=== PATIENT | female | born 1965 | race Caucasian/White ===

== ENCOUNTER 2017-03-10 08:43 | Inpatient (IN) | payer OTHER ==
[~2017-03-10] VITALS: Ht 167.6 cm; Wt 81.6 kg
[~2017-03-10 08:43] MED LIST: ASPIRIN CHILDRE81 MG; BENADRYL 50 MG50 MG; BENZTROPINE1 MG PO; LEVOTHYROXINE0.1 M1 PO; SEROQUEL 100MG100 MG PO
--- NOTE | 2017-03-10 09:51 | ED GENERAL ADULT ---
History of Present Illness General Chief Complaint: Fall Stated Complaint: BIBA, S/P FALL Source: patient, family Exam Limitations: poor historian Vital Signs & Intake/Output Vital Signs & Intake/Output Vital Signs Date Time Temp Pulse Resp B/P B/P Pulse O2 O2 Flow FiO2 Mean Ox Delivery Rate 03/10 1447 99.2 80 24 162/81 03/10 1311 97.0 78 18 143/79 96 Room Air 03/10 1208 97.0 80 20 154/80 98 Room Air 03/10 1050 98.0 80 20 147/79 98 Room Air 03/10 0925 97.8 78 18 136/74 96 Room Air 03/10 0913 99 Room Air 03/10 0846 97.2 82 20 127/73 98 Room Air Allergies Coded Allergies: NO KNOWN ALLERGIES (05/24/16) Reconcile Medications Aspirin (Children's Aspirin) (Unknown Strength) TAB.CHEW (Unknown Dose) UNKNOWN (Reported) Benztropine Mesylate (Benztropine) 1 MG TAB 1 TAB PO BEDTIME PSYCH HEALTH ( Reported) Diphenhydramine HCl (Benadryl) (Unknown Strength) CAP (Unknown Dose) SLEEP ( Reported) Levothyroxine Sodium 0.1 MG TAB 1 TAB PO DAILY HYPOTHYROID (Reported) Quetiapine Fumarate (Seroquel) 100 MG TAB 3 TAB PO QPM BIPOLAR (Reported) Quetiapine Fumarate (Seroquel) 200 MG TABLET 3 TAB PO QPM Psychosis Triage Note: PT BIBIsabel FROM HOME AFTER TRIPPING AND FALLING INJURING LEFT HIP AND LEG. PT DENIES LOC, DENIES HEADSTRIKE. Triage Nurses Notes Reviewed? yes Onset: Abrupt Duration: hour(s): Timing: single episode today Injury Environment: home Severity: moderate Modifying Factors: Improves With: rest. HPI: 51yo female BIBIsabel to ED c/o fall. Patient states that this morning while she was doing laundry she stood up and felt tired and fell down. She is not sure of how she fell however she thinks she landed on her left side. She denies hitting her head during fall. She c/o pain in her left hip and left leg. She was not able to walk after she fell. She denies LOC, black out, or syncope. Prior to her fall she did not feel dizziness, lightheadedness, chest pain, palpitations, short of breath. She states that she no longer drinks alcohol however her states she may have been drinking recently and she often lies about her drinking, he states she drinks "when ever she can get her hands on it". The patient smokes 1- 2 packs per day and denies ilicit drug use. The states that the patient does not sleep well at night and is often tired during the day. The patient states this morning she woke up around 4AM and felt awake. She denies abdominal pain, visual changes, head or neck pain, headache, urinary symptoms, changes in bowel movements. (JAIDA PEREZ PA-C) Past History Travel History Traveled to [place] past 21 day No Medical History Any Pertinent Medical History? see below for history Neurological: NONE EENT: NONE Cardiovascular: NONE Respiratory: NONE Gastrointestinal: NONE Hepatic: NONE Renal: NONE Musculoskeletal: NONE Psychiatric: NONE Endocrine: THYROID Surgical History Surgical History: none Psychosocial History Who do you live with Family What is your primary language Uzbek Tobacco Use: Current Daily Use Daily Tobacco Use Amount/Type: => 5 Cigarettes daily ETOH Use: occasional use Illicit Drug Use: denies illicit drug use Family History Hx Contributory? No (JAIDA PEREZ PA-C) Medical History Endocrine: hypothyroidism (JOSE MIGUEL HOGUE,MARTHA) Review of Systems Review of Systems Constitutional: Reports: no symptoms. EENTM: Reports: no symptoms. Respiratory: Reports: no symptoms. Cardiovascular: Reports: no symptoms. GI: Reports: no symptoms. Genitourinary: Reports: no symptoms. Musculoskeletal: Reports: see HPI. Skin: Reports: no symptoms. Neurological/Psychological: Reports: no symptoms. Hematologic/Endocrine: Reports: no symptoms. Immunologic/Allergic: Reports: no symptoms. All Other Systems: Reviewed and Negative (JAIDA PEREZ PA-C) Physical Exam Physical Exam General Appearance: well developed/nourished, no apparent distress, alert, awake Head: atraumatic, normal appearance, no tenderness Eyes: Bilateral: normal appearance, PERRL, EOMI. Ears, Nose, Throat: normal pharynx, hearing grossly normal, moist mucus membranes, no bleeding from gums, no erythema Neck: normal inspection, supple, full range of motion, no midline tenderness Respiratory: chest non-tender, no respiratory distress, lungs clear Cardiovascular: regular rate/rhythm Gastrointestinal: normal bowel sounds, soft, non-tender, no organomegaly Back: normal inspection, tenderness over lumbar spine and lumbar paraspinal muscles Extremities: pedal edema (1+ bilaterally), tenderness at left pelvis and hip, left femur, and left knee, decreased ROM with hip flexion due to pain Neurologic/Psych: awake, alert, oriented x 3, supervisor receiving and processing II-XII nml as tested, sensation intact Skin: intact, warm/dry, no ecchymosis, no abrasions, no lacerations, dark red/ purple pigmentation of bilateral ankles and lower legs Core Measures ACS in differential dx? Yes CVA/TIA Diagnosis: No Severe Sepsis Present: No Septic Shock Present: No (CHRIS RENE,JAIDA) Progress Differential Diagnoses I considered the following diagnoses in my evaluation of the patient: [CVA/TIA, ACS, etoh intoxication, drug overdose, dehydration, fracture, ICH, vertebral injury, spinal cord injury] Plan of Care: Orders Procedure Date/time Status CBC WITHOUT DIFFERENTIAL 03/11 0600 Active BASIC ELECTROLYTES PLUS BUN&CR 03/11 0600 Active Nothing by Mouth 03/10 D Active Pathway - chart 03/10 1413 Active Pathway - chart 03/10 1411 Active House Staff 03/10 1411 Active Code Status 03/10 1411 Active ED Holding Orders 03/10 1336 Active Admit to inpatient 03/10 1336 Active Vital Signs 03/10 1336 Active Code Status 03/10 1336 Complete Patient Data 03/10 1306 Active Add-on Test (ER Only) 03/10 1142 Active Add-on Test (ER Only) 03/10 1135 Active Rodgers, Insertion/Removal/Asses 03/10 1135 Complete CULTURE,URINE 03/10 1013 Active Add-on Test (ER Only) 03/10 0959 Active PARTIAL THROMBOPLASTIN TIME 03/10 0940 Complete PROTHROMBIN TIME 03/10 0940 Complete MAGNESIUM 03/10 0940 Complete CREATINE PHOSPHOKINASE 03/10 0940 Complete TYPE & SCREEN (NOT X-MATCH) 03/10 0940 Complete URINE DRUG SCREEN FOR ER ONLY 03/10 0935 Complete TROPONIN LEVEL 03/10 0935 Complete ETHANOL 03/10 0935 Complete COMPREHENSIVE METABOLIC PANEL 03/10 0935 Complete CBC WITHOUT DIFFERENTIAL 03/10 0935 Complete EKG 03/10 0935 Active Intake & Output 03/10 0913 Active VTE Mechanical Prophylaxis 03/10 UNK Active Current Medications Sig/Harsha Start time Last Medication Dose Stop Time Status Admin Levothyroxine Sodium 0.1 MG DAILY AC 03/11 0700 AC (Synthroid) Acetaminophen 1,000 MG Q6P PRN 03/10 1430 AC (Ofirmev) Ketorolac 15 MG Q6P PRN 03/10 1415 AC Tromethamine (Toradol) Lidocaine 1 PAT Q24H 03/10 1415 AC (Lidoderm) Morphine Sulfate 2 MG Q4P PRN 03/10 1415 AC (Morphine) Sodium Chloride 1,000 ML .Q10H 03/10 1415 AC 03/10 (Normal Saline 0.9%) 1438 Laboratory Tests 03/10/17 1013: Urine Opiates Screen < 100.00, Methadone Screen 69, Barbiturate Screen < 60, Ur Phencyclidine Scrn < 6.00, Amphetamines Screen < 100, U Benzodiazepines Scrn 95, Urine Cocaine Screen < 50, Urine Cannabis Screen 76.40 H 03/10/17 0940: Anion Gap 8, Estimated GFR > 60, BUN/Creatinine Ratio 17.1, Glucose 95, Calcium 9.4, Magnesium 2.0, Total Bilirubin 0.4, AST 26, ALT 35, Alkaline Phosphatase 101, Creatine Kinase 60, Troponin I < 0.01, Total Protein 6.5, Albumin 4.1, Globulin 2.4, Albumin/Globulin Ratio 1.7, PT 10.6, INR 1.01, APTT 29, CBC w Diff NO MAN DIFF REQ, RBC 4.22, MCV 96.5, MCH 31.9 H, RDW 14.3, MPV 7.1 L, Gran % 84.7 H, Lymphocytes % 10.4 L, Monocytes % 4.5, Eosinophils % 0.2, Basophils % 0.2, Absolute Granulocytes 6.8 H, Absolute Lymphocytes 0.8 L, Absolute Monocytes 0.4, Absolute Eosinophils 0, Absolute Basophils 0, PUBS MCHC 33.0, Serum Alcohol < 10.0 Microbiology 03/10 1135 URINE ROUT: Urine Culture - CAN Cancelled: Cancelled via OE: ADD ON 03/10 1013 URINE ROUT: Urine Culture - RECD EKG shows mild QT prolongation, magnesium level added on and pending Patient is talking in slow sentences, states that this is her normal however possible intoxication currently or last night. Patient was discussed with Dr. Sorto. On repeat exam patient and state that she was doing laundry last night around 11Pm and found her sitting on the ground downstairs after her fall this morning. Head CT order to assess for occult bleeding. Upon furhter questioning patient admits to buying methadone "on the streets". Xray results show Impacted left femoral neck fracture. Discussed patient with Orthopedist Dr. Martinez who states she may be able to go to surgery today pending medical clearance from Dr. Alanis. Patient was discussed with Dr. Alanis. Will keep NPO pending surgery. 13:[address] shows no acute intracranial pathology. CT of cervical spine shows no acute fracture, C-spine WNL. CXR shows no acute cardiopulmonary pathology. 13:33 Patient seen at bedside, she is sleeping comfortably in bed, no acute distress. 14:30 Patient cleared medically for surgery, will go to OR today. (CHRIS RENE,JAIDA) Diagnostic Imaging: Viewed by Me: Radiology Read, CT Scan. Discussed w/RAD: Radiology Read, CT Scan. Radiology Impression: PATIENT: UZMA MONTEJO PRESENT AGE: 51 PATIENT ACCOUNT NO: [id number] : 64 LOCATION: [facility] ORDERING PHYSICIAN: JAIDA PEREZ PA-C SERVICE DATE: 03/10/17 EXAM TYPE: RAD - XRY-FEMUR, LEFT 2 VIEWS; XRY-HIP 2-3 VIEWS, LEFT EXAMINATION: XR FEMUR and hip, LEFT CLINICAL INFORMATION: Pain post fall COMPARISON: None TECHNIQUE: AP view of the pelvis. AP and shoot through lateral view of the left hip. AP and lateral view of the left femur. FINDINGS: There is an impacted left femoral neck fracture. No other fracture is seen. The left hip joint and knee joint are unremarkable. Soft tissues are unremarkable. Bones of the pelvis are unremarkable. There is stool seen throughout the colon and dilatation of the bowel suggestive of constipation. IMPRESSION: Impacted left femoral neck fracture. DICTATED BY: ORIN MARSHALL MD DATE/TIME DICTATED:03/10/171057 TOP LIFT NAILER:JENNIFER DATE/TIME TRANSCRIBED:03/10/171057 CONFIDENTIAL, DO NOT COPY WITHOUT APPROPRIATE AUTHORIZATION. <Electronically signed in Other Vendor System> SIGNED BY: ORIN MARSHALL MD 03/10/17 1104, PATIENT: UZMA MONTEJO PRESENT AGE: 51 PATIENT ACCOUNT NO: [id number] : 64 LOCATION: [facility] ORDERING PHYSICIAN: JAIDA PEREZ PA-C SERVICE DATE: 03/10/17 EXAM TYPE: RAD - XRY-FEMUR, LEFT 2 VIEWS; XRY-HIP 2- 3 VIEWS, LEFT EXAMINATION: XR FEMUR and hip, LEFT CLINICAL INFORMATION: Pain post fall COMPARISON: None TECHNIQUE: AP view of the pelvis. AP and shoot through lateral view of the left hip. AP and lateral view of the left femur. FINDINGS: There is an impacted left femoral neck fracture. No other fracture is seen. The left hip joint and knee joint are unremarkable. Soft tissues are unremarkable. Bones of the pelvis are unremarkable. There is stool seen throughout the colon and dilatation of the bowel suggestive of constipation. IMPRESSION: Impacted left femoral neck fracture. DICTATED BY: ORIN MARSHALL MD DATE/TIME DICTATED:03/10/171057 TOP LIFT NAILER:JENNIFER DATE/TIME TRANSCRIBED:03/10/171057 CONFIDENTIAL, DO NOT COPY WITHOUT APPROPRIATE AUTHORIZATION. <Electronically signed in Other Vendor System> SIGNED BY: ORIN MARSHALL MD. 03/10/17 110, PATIENT: UZMA MONTEJO PRESENT AGE: 51 PATIENT ACCOUNT NO: [id number] : 64 LOCATION: [facility] ORDERING PHYSICIAN: JAIDA PEREZ PA-C SERVICE DATE: 03/10/17 EXAM TYPE: CAT - CT CERV SPINE WO IV CONTRAST; CT HEAD WO IV CONTRAST EXAMINATION: CT HEAD WITHOUT CONTRAST CT CERVICAL SPINE WITHOUT CONTRAST CLINICAL INFORMATION: A 51- year-old female with history of fall. Found to have left femoral neck fracture. COMPARISON: CT of the head done on 03/21/2011. TECHNIQUE: Noncontrast CT scan of the head and cervical spine, using standard protocol. Multiplanar reconstructed images are obtained. Multiplanar reconstructed images are also obtained. DLP: 916.96 mGy-cm. FINDINGS: CT OF THE HEAD: The brain parenchyma, ventricles, cisterns and sulci appear unremarkable. Specifically, no evidence of intra-axial mass, mass effect, extra-axial fluid collection, midline shift, acute intraparenchymal hemorrhage and/or acute infarction present. Both orbital globes , extraocular muscles, optic nerves appear bilaterally symmetric and are unremarkable. The bilateral mastoid air cells appear unremarkable. Soft tissue thickening consistent with focal sinusitis versus mucous retention cyst and/or polyp is noted within the included visualized posterior inferior part of the left maxillary sinus. CT OF THE CERVICAL SPINE: The height, alignment of the cervical vertebrae is well maintained. The posterior appendages are intact. The prespinal soft tissues are unremarkable. Incidental note is made of significant facet joint arthritic changes on the right between C2-C3, C3-C4, C4-C5 and C5-C6 with partial fusion of C2-C3. Moderate mid cervical dextroscoliosis is noted. Jwlb-ze-zmetrxvk spondylosis is noted at C5-C6 and C6-C7. Nonspecific mild straightening of the cervical spine is also noted. Both lung apices are clear. IMPRESSION: 1. No acute intracranial pathology. 2. No CT evidence of any acute fracture no subluxation or dislocation or prespinal soft tissue hematoma present at the cervical spine. 3. Incidental note is made of focal sinusitis versus mucous retention cyst and/or polyp within the left maxillary sinus, and degenerative spondylosis, nonspecific straightening of the cervical spine and significant facet degenerative arthritic changes on the right with mid cervical moderate dextroscoliosis. DICTATED BY: JAYLAN GARCÍA MD DATE/TIME DICTATED:1239 TOP LIFT NAILER:JENNIFER DATE/TIME TRANSCRIBED:03/10/171239 CONFIDENTIAL, DO NOT COPY WITHOUT APPROPRIATE AUTHORIZATION. <Electronically signed in Other Vendor System> SIGNED BY: JAYLAN GARCÍA MD 03/10/17 1304, PATIENT: UZMA MONTEJO PRESENT AGE: 51 PATIENT ACCOUNT NO: [id number] : 64 LOCATION: [facility] ORDERING PHYSICIAN: JAIDA PEREZ PA-C SERVICE DATE: 03/10/17 EXAM TYPE: CAT - CT CERV SPINE WO IV CONTRAST; CT HEAD WO IV CONTRAST EXAMINATION: CT HEAD WITHOUT CONTRAST CT CERVICAL SPINE WITHOUT CONTRAST CLINICAL INFORMATION: A 51-year-old female with history of fall. Found to have left femoral neck fracture. COMPARISON: CT of the head done on 03/21/2011. TECHNIQUE: Noncontrast CT scan of the head and cervical spine, using standard protocol. Multiplanar reconstructed images are obtained. Multiplanar reconstructed images are also obtained. DLP: 916.96 mGy-cm. FINDINGS : CT OF THE HEAD: The brain parenchyma, ventricles, cisterns and sulci appear unremarkable. Specifically, no evidence of intra-axial mass, mass effect, extra- axial fluid collection, midline shift, acute intraparenchymal hemorrhage and/or acute infarction present. Both orbital globes, extraocular muscles, optic nerves appear bilaterally symmetric and are unremarkable. The bilateral mastoid air cells appear unremarkable. Soft tissue thickening consistent with focal sinusitis versus mucous retention cyst and/or polyp is noted within the included visualized posterior inferior part of the left maxillary sinus. CT OF THE CERVICAL SPINE: The height, alignment of the cervical vertebrae is well maintained. The posterior appendages are intact. The prespinal soft tissues are unremarkable. Incidental note is made of significant facet joint arthritic changes on the right between C2-C3, C3-C4, C4-C5 and C5-C6 with partial fusion of C2-C3. Moderate mid cervical dextroscoliosis is noted. Hqmp-tc-alvyfqal spondylosis is noted at C5-C6 and C6-C7. Nonspecific mild straightening of the cervical spine is also noted. Both lung apices are clear. IMPRESSION: 1. No acute intracranial pathology. 2. No CT evidence of any acute fracture no subluxation or dislocation or prespinal soft tissue hematoma present at the cervical spine. 3. Incidental note is made of focal sinusitis versus mucous retention cyst and/or polyp within the left maxillary sinus, and degenerative spondylosis, nonspecific straightening of the cervical spine and significant facet degenerative arthritic changes on the right with mid cervical moderate dextroscoliosis. DICTATED BY: JAYLAN GARCÍA MD DATE/TIME DICTATED:03/10/171239 TOP LIFT NAILER:JENNIFER DATE/TIME TRANSCRIBED:03/10/171239 CONFIDENTIAL, DO NOT COPY WITHOUT APPROPRIATE AUTHORIZATION. <Electronically signed in Other Vendor System> SIGNED BY: JAYLAN GARCÍA MD 03/10/17 1307 CXR Impression: PATIENT: UZMA MONTEJO PRESENT AGE: 51 PATIENT ACCOUNT NO: [id number] : 64 LOCATION: [facility] ORDERING PHYSICIAN: MARTHA SORTO MD SERVICE DATE: 03/10/17 EXAM TYPE: RAD - XRY-PORTABLE CHEST XRAY EXAMINATION: XR PORTABLE CHEST CLINICAL INFORMATION: Left femoral neck fracture. COMPARISON: Chest done on 06/08/2009. TECHNIQUE: Portable frontal view of the chest was obtained. FINDINGS: Mild hyperinflated lung field is present bilaterally. Both lung severino are clear. The cardiomediastinal silhouette is within normal limits. There is no pleural effusion present. The visualized upper abdomen is unremarkable. No significant change since prior study. IMPRESSION: No acute cardiopulmonary disease. DICTATED BY: JAYLAN GARCÍA MD DATE/TIME DICTATED:03/10/171238 TOP LIFT NAILER:JENNIFER DATE/ TIME TRANSCRIBED:03/10/171238 CONFIDENTIAL, DO NOT COPY WITHOUT APPROPRIATE AUTHORIZATION. <Electronically signed in Other Vendor System> SIGNED BY: JAYLAN GARCÍA MD 03/10/17 1244 Initial ED EKG: sinus at 72bpm, 1st degree AV block, prolonged QTC at 443, no ST-T wave abnormalities Prior EKG: unchanged (JAIDA PEREZ PA-C) Differential Diagnoses I considered the following diagnoses in my evaluation of the patient: Diagnostic Imaging: Viewed by Me: Radiology Read, CT Scan. Discussed w/RAD: Radiology Read, CT Scan. (JOSE MIGUEL HOGUE,MARTHA) Departure Departure Time of Disposition: 1440 Condition: Stable Referrals: OPAL HOGUE,MICHEAL Wolfe (PCP/Family) Departure Forms: Customer Survey General Discharge Information Prescriptions: Current Visit Scripts Quetiapine Fumarate (Seroquel) 3 TAB PO QPM #30 TAB Admission Note Spoke With: RENETTA ALANIS MD Documentation of Exam: Documentation of any treatments & extenuating circumstances including Concerns Regarding Discharge (functional status, medication knowledge or non-compliance, living conditions, etc.) that warrant an admission rather than observation: [ impacted left femoral neck fracture, surgery scheduled for today, will need pain control, orthopedic evaluation and consult, PT/OT consults, premature discharge would be medically harmful] (JAIDA PEREZ PA-C) Departure Disposition: STILL A PATIENT Clinical Impression Primary Impression: Fracture of femoral neck, left PA/STRAIN TECHNICIAN Co-Sign Statement Statement: ED Attending supervision documentation- [X] I saw and evaluated the patient. I have also reviewed all the pertinent lab results and diagnostic results. I agree with the findings and the plan of care as documented in the PA's/STRAIN TECHNICIAN's documentation. [X] I have reviewed the ED Record and agree with the PA's/STRAIN TECHNICIAN's documentation. [] Additions or exceptions (if any) to the PAs/STRAIN TECHNICIAN's note and plan are summarized below: [] (JOSE MIGUEL HOGUE,MARTHA) Critical Care Note Critical Care Note Critical Care Time: non-applicable (CHRIS RENE,JAIDA)
[2017-03-10 10:08] LABS: ABSOLUTE BASOPHIL COUNT 0 /CUMM (0.0-0.2); ABSOLUTE EOSINOPHIL COUNT 0 /CUMM (0.0-0.7); ABSOLUTE GRANULOCYTE CT 6.8 /CUMM (1.4-6.5); ABSOLUTE LYMPH COUNT 0.8 /CUMM (1.2-3.4); ABSOLUTE MONOCYTE COUNT 0.4 /CUMM (0.10-0.60); BASOPHIL % 0.2 % (0.0-2.0); EOSINOPHIL % 0.2 % (0-5); HEMATOCRIT 40.8 % (37-47); MEAN CORPUSCULAR HGB 31.9 PG (27.0-31.0); MEAN CORPUSCULAR VOLUME 96.5 FL (81.0-99.0); MEAN PLATELET VOLUME 7.1 FL (7.4-10.4); PLATELET COUNT 177 /CUMM (130-400); RBC DISTRIBUTION WIDTH 14.3 % (11.5-14.5); RED BLOOD CELL CT 4.22 /CUMM (4.20-5.40)
[2017-03-10 10:26] LABS: GRANULOCYTE % 84.7 % (42.2-75.2)
--- NOTE | 2017-03-10 11:04 | RADIOLOGY REPORT ---
EXAMINATION: XR FEMUR and hip, LEFT CLINICAL INFORMATION: Pain post fall COMPARISON: None TECHNIQUE: AP view of the pelvis. AP and shoot through lateral view of the left hip. AP and lateral view of the left femur. FINDINGS: There is an impacted left femoral neck fracture. No other fracture is seen. The left hip joint and knee joint are unremarkable. Soft tissues are unremarkable. Bones of the pelvis are unremarkable. There is stool seen throughout the colon and dilatation of the bowel suggestive of constipation. IMPRESSION: Impacted left femoral neck fracture.
[2017-03-10 11:57] LABS: PT 10.6 SEC (9.4-12.5); PTT 29 SEC (25-37)
--- NOTE | 2017-03-10 12:18 | History & Physical ---
ALESHIA CONNORS 03/10/17 1216: General Information and HPI MD Statement: I have seen and personally examined UZMA MONTEJO and documented this H&P. The patient is a 51 year old F who presented with a patient stated chief complaint of [leg pain/impacted s/p mechanical fall left femoral neck fracture ] . Source of Information: patient, family Exam Limitations: no limitations History of Present Illness: 51 years old woman w/ significant PMH of psychosis and insominia/ ?? narcolepsy, depression was admitted for left femur Fx following a mechanical fall. Patient was admitted in in patient psych few years ago in [facility], where she was diagnosed and treated for aforementioned psychaitric diagnoses and has been folow up with Alexia Wise MD at ([phone]; ext:[phone]). According to her Cheri mental heigene\\ well being has detoriorated over time. barely remeber the last time that she got a night time sleep. He also reported that frequently he found his falling to sleep in " awekward" positions e.g. in the bath tub, while talking, and few times this micr sleeps resulted in fall w/o any major physical harm for her. This morning, though, patient did not return from laundry in the basement and when he checked up on her, she was laying on the floor. Patient remebers the details of the incident and described it with feeling droopy and sleepy for a second " like I always feel", I closed my eyes for a second and I fell backward. She denies LOC, HT, CP,palpiatation, incontinence, toungue bite. Patient reports excrutiating pain in her left hip/ femur. She leaves with her and financially depends on her , the dynamic of the family seems abit irritated.Not socially productive/ patient has components of irratic and impulssive behavious such as impulssive drinking or smoking pot. She does not have flight of idea, pressured speach, SI\\HI. 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 [employer] [phone] [id number] Allergies/Medications Allergies: Coded Allergies: NO KNOWN ALLERGIES (05/24/16) Compliance With Home Meds: GOOD Past History Travel History Traveled to [place] past 21 day No Medical History Neurological: NONE EENT: NONE Cardiovascular: NONE Respiratory: NONE Gastrointestinal: NONE Hepatic: NONE Renal: NONE Musculoskeletal: NONE Psychiatric: anxiety, bipolar disease, insomnia, psychosis Endocrine: hypothyroidism Surgical History Surgical History: none Past Family/Social History Psychosocial History Primary Language: Maori ETOH Use: occasional use Illicit Drug Use: denies illicit drug use Functional Ability ADLs Independent: dressing, eating, toileting, bathing. Ambulation: independent IADLs Independent: shopping, housework, finances, food prep, telephone, transportation , medication admin. Employment History Employment Unemployed Review of Systems Review of Systems Constitutional: Reports: see HPI. EENTM: Reports: no symptoms. Respiratory: Reports: no symptoms. GI: Reports: no symptoms. Genitourinary: Reports: no symptoms. Musculoskeletal: Reports: see HPI, joint pain. Skin: Reports: change in skin color. Neurological/Psychological: Reports: no symptoms, anxiety, emotional problems. Denies: ataxia, cognitive dysfunction, confusion, depressed, dementia, numbness, paresthesia. All Other Systems: Reviewed and Negative Exam & Diagnostic Data Last 24 Hrs of Vital Signs/I&O Vital Signs Date Time Temp Pulse Resp B/P B/P Pulse O2 O2 Flow FiO2 Mean Ox Delivery Rate 03/10 1311 97.0 78 18 143/79 96 Room Air 03/10 1208 97.0 80 20 154/80 98 Room Air 03/10 1050 98.0 80 20 147/79 98 Room Air 03/10 0925 97.8 78 18 136/74 96 Room Air 03/10 0913 99 Room Air 03/10 0846 97.2 82 20 127/73 98 Room Air Intake & Output 03/10 1600 03/10 0800 03/10 0000 Intake Total 0 Output Total Balance 0 Intake, Oral 0 Patient 140 lb Weight Weight Reported by Patient Measurement Method Physical Exam General Appearance Alert, Oriented X3, Cooperative, No Acute Distress Skin No Rashes HEENT dry mouth Neck Supple, No JVD, No thryomegaly Lymphatic Axillary nl, Cervical nl Cardiovascular Normal S1, Normal S2, No Murmurs Lungs Clear to Auscultation, Normal Air Movement Abdomen Soft, No Tenderness, No Hepatospenomegaly Neurological Normal Speech, Sensation Intact, Cranial Nerves 3-12 NL Extremities No Clubbing, No Cyanosis, left foot rotated outward, Vascular Normal Pulses Body Front and Back (Adult) 1) venous stasis 2) left foot rotated outward 3) tender to touch Last 24 Hrs of Labs/Petar: Laboratory Tests 03/10/17 1013: Urine Opiates Screen < 100.00, Methadone Screen 69, Barbiturate Screen < 60, Ur Phencyclidine Scrn < 6.00, Amphetamines Screen < 100, U Benzodiazepines Scrn 95, Urine Cocaine Screen < 50, Urine Cannabis Screen 76.40 H 03/10/17 0940: Anion Gap 8, Estimated GFR > 60, BUN/Creatinine Ratio 17.1, Glucose 95, Calcium 9.4, Magnesium 2.0, Total Bilirubin 0.4, AST 26, ALT 35, Alkaline Phosphatase 101, Creatine Kinase 60, Troponin I < 0.01, Total Protein 6.5, Albumin 4.1, Globulin 2.4, Albumin/Globulin Ratio 1.7, PT 10.6, INR 1.01, APTT 29, CBC w Diff NO MAN DIFF REQ, RBC 4.22, MCV 96.5, MCH 31.9 H, RDW 14.3, MPV 7.1 L, Gran % 84.7 H, Lymphocytes % 10.4 L, Monocytes % 4.5, Eosinophils % 0.2, Basophils % 0.2, Absolute Granulocytes 6.8 H, Absolute Lymphocytes 0.8 L, Absolute Monocytes 0.4, Absolute Eosinophils 0, Absolute Basophils 0, PUBS MCHC 33.0, Serum Alcohol < 10.0 Microbiology 03/10 1135 URINE ROUT: Urine Culture - CAN Cancelled: Cancelled via OE: ADD ON 03/10 1013 URINE ROUT: Urine Culture - RECD Diagnostic Data EKG Results NSRR 72 B/min Prolonged QT of 443 first degree AV block no ST T wave change Assessment/Plan Assessment: 51 years old was admitted for impacted left femur neck Fx following amechanical fall. list of problems: 1) left femural neck Fx 2) complicated psychiatric Hx not in overt psychotic episode 3)prolonged QT Plan * admit to [facility] floor * NPO; aspiration percusion post op * plan for ORIF and hip replacment surgery * check post-op CBC and BEP * pain managmet and incentive spirometry * trc/neb Q4 PRN * AC post op after clearing with surgeons; usually for 3 month on warfarin or NOVEL agents * Pain management * psych consult and for now hold her seroquel NO DVT prophylaxis: going for surgery DNRDNI As Ranked By This Provider Problem List: 1. Fracture of femoral neck, left 2. Episodic mood disorder Core Measures/Miscellaneous Acute Coronary Syndrome ACS Diagnosis: No Cerebrovascular Accident CVA/TIA Diagnosis: No Congestive Heart Failure CHF Diagnosis: No VTE (View Protocol) VTE Risk Factors: Acute medical illness, Age > 40, Immobility, paresis No Mech VTE prophylaxis d/t: No contraindications No VTE Pharm Prophylaxis d/t: No contraindications VTE Diagnosis: No VTE Type: NONE VTE Confirmed by (Test): NONE Sepsis (View Protocol) Severe Sepsis Present: No Septic Shock Septic Shock Present: No Miscellaneous Documentation Attending Case Discussed With: RENETTA MOSQUEDA MD Primary Care Physician: MICHEAL JOSEPH MD Patient sees these Specialists marine habitat resource specialist Level of Patient Care: General Medicine RENETTA MOSQUEDA MD 03/10/17 9572: General Information and HPI Allergies/Medications Home Med list Aspirin (Children's Aspirin) (Unknown Strength) TAB.CHEW (Unknown Dose) UNKNOWN (Reported) Benztropine Mesylate (Benztropine) 1 MG TAB 1 TAB PO BEDTIME PSYCH HEALTH ( Reported) Diphenhydramine HCl (Benadryl) (Unknown Strength) CAP (Unknown Dose) SLEEP ( Reported) Levothyroxine Sodium 0.1 MG TAB 1 TAB PO DAILY HYPOTHYROID (Reported) Quetiapine Fumarate (Seroquel) 200 MG TABLET 3 TAB PO QPM Psychosis Attending MD Review Statement Attending Statement Attending MD Statement: examined this patient, discuss w/resident/PA/OTHER SPATIAL SCIENTIST, agreed w/resident/PA/OTHER SPATIAL SCIENTIST, reviewed EMR data (avail), reviewed images, amended to note Attending Assessment/Plan: The patient is a 51 yo female with h/o psychosis (?), former smoker, who presented in the [place] ED after a mechanical fall that occurred at home. She sustained an impacted left femoral neck fracture. She has a diagnosis of "narcolepsy". She had had some alcohol at the time of the fall, however level was low on admission. She denied any LOC, although did strike her head. CT head and neck done in ED were not remarkable. Orthopedics requested medical evaluation prior to surgery. Physical Exam: VS: T 97.2, P 82, R 20, BP 127/73, PO 98% RA HEENT: Head- NCAT eyes- PERRLA, EOMI samara- dry mucosa (patient states due to Seroquel), w/o lesions Neck: no adenopathy or bruits Chest: clear Cor: RRR, nl S1, S2 w/o murm Abd: BS+, soft, NT, - masses or HSM Ext: +bilat 1+ LE edema with stasis changes and early ulcer (left ankle), left hip rotated inward Labs/Tests- as above Impression/Plan: #S/P Mechanical Fall with Acute Impacted Left Femoral Neck Fracture- suspect underlying osteoporosis. Discussed with orthopedics and will require total left hip arthroplasty. Plan: Medically stable for planned total hip arthroplasty. Dr. Martinez informed. Will need OP work up/bone density evaluation (DEXA). #Psychosis/Psych- patient is alert & oriented at present. Has been on Seroquel. Plan: Will continue Seroquel and follow. Will obtain psych input post operatively. #Prolonged QT Interval- QTc as above- patient on Seroquel. Plan: Will monitor closely with EKG's (no telemetry needed). #Acute Pain- secondary to fracture. Plan: Will use pain pathway.
--- NOTE | 2017-03-10 12:39 | Cons- Orthopedic ---
General Information and HPI Consulting Request Date of Consult: 03/10/17 Requested By: Reason for Consult: left femoral neck fracture, impacted Source of Information: patient, old records Exam Limitations: not alert/orientated, confusion, poor historian, intoxication History of Present Illness: This 51 year old female was BIBA with leg pain s/p fall. 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 She is unclear about the timeline and states no one was home when it occurred. She reports she "felt tired" when it happened, and denies any precipitating factors. She denies drinking alcohol or using any substances prior to the fall event. She is not sure of how she fell however she thinks she landed on her left side. She denies hitting her head during fall. She c/o pain in her left hip and left leg. She was not able to walk after she fell. She denies LOC, black out, or syncope. Prior to her fall she did not feel dizziness, lightheadedness, chest pain, palpitations, short of breath. Although she denies drinking prior to the fall, she does report a history of alcohol abuse, with her last episode "about a year ago". Her reportedly believes she may have been drinking recently and she often lies about her drinking, and states she drinks "when ever she can get her hands on it". The patient smokes 1- 2ppd and packs per day and denies ilicit drug use. The states that the patient does not sleep well at night and is often tired during the day. She believes she may have fallen once before, but is unclear when or how that may have occurred. She denies using methadone, marijuana, alcohol, and any other recreational drug. Allergies/Medications Allergies: Coded Allergies: NO KNOWN ALLERGIES (05/24/16) Home Med List: Aspirin (Children's Aspirin) (Unknown Strength) TAB.CHEW (Unknown Dose) UNKNOWN (Reported) Benztropine Mesylate (Benztropine) 1 MG TAB 1 TAB PO BEDTIME PSYCH HEALTH ( Reported) Diphenhydramine HCl (Benadryl) (Unknown Strength) CAP (Unknown Dose) SLEEP ( Reported) Levothyroxine Sodium 0.1 MG TAB 1 TAB PO DAILY HYPOTHYROID (Reported) Quetiapine Fumarate (Seroquel) 100 MG TAB 3 TAB PO QPM BIPOLAR (Reported) Past History Medical History Neurological: NONE EENT: NONE Cardiovascular: NONE Respiratory: NONE Gastrointestinal: NONE Hepatic: NONE Renal: NONE Musculoskeletal: NONE Psychiatric: schizo affective disorder, history of alcohol abuse Endocrine: hypothyroidism Other Medical Hx: venous insufficiency Surgical History Pertinent Surgical History: Psychosocial History ETOH Use: occasional use Illicit Drug Use: denies illicit drug use Review of Systems Review of Systems: admits: left hip and leg discomfort, chronic venous insufficiency of bilateral lower legs denies: dizziness, shortness of breath, chest pains, dysuria Exam & Diagnostic Data Vital Signs and I&O Vital Signs Date Time Temp Pulse Resp B/P B/P Pulse O2 O2 Flow FiO2 Mean Ox Delivery Rate 03/10 1208 97.0 80 20 154/80 98 Room Air 03/10 1050 98.0 80 20 147/79 98 Room Air 03/10 0925 97.8 78 18 136/74 96 Room Air 03/10 0913 99 Room Air 03/10 0846 97.2 82 20 127/73 98 Room Air Intake & Output 03/10 1600 03/10 0800 03/10 0000 03/09 1600 03/09 0800 03/09 0000 Intake Total 0 Output Total Balance 0 Intake, Oral 0 Patient 140 lb Weight Weight Reported by Patient Measurement Method Physical Exam: General - alert to person, place. "march 06". Skin - warm, dry, and smooth. evidence of venous insufficiency of her lower legs. Lungs - clear bilaterally. no w/r/r. Cardiac - s1s2. reg. Abdomen - soft. nontender. Extremities - warm bilaterally. left leg externally rotated. evidence of venous insufficiency b/l lower legs (left>right). palpable pulses distally. sensation grossly intact. able to move toes and ankle b/l. Last 24 Hours of Labs: Laboratory Tests 03/10 03/10 1013 0940 Chemistry Sodium (137 - 145 mmol/L) 138 Potassium (3.5 - 5.1 mmol/L) 4.1 Chloride (98 - 107 mmol/L) 105 Carbon Dioxide (22 - 30 mmol/L) 25 Anion Gap (5 - 16) 8 BUN (7 - 17 mg/dL) 12 Creatinine (0.5 - 1.0 mg/dL) 0.7 Estimated GFR (>60 ml/min) > 60 BUN/Creatinine Ratio (7 - 25 %) 17.1 Glucose (65 - 99 mg/dL) 95 Calcium (8.4 - 10.2 mg/dL) 9.4 Magnesium (1.6 - 2.3 mg/dL) 2.0 Total Bilirubin (0.2 - 1.3 mg/dL) 0.4 AST (14 - 36 U/L) 26 ALT (9 - 52 U/L) 35 Alkaline Phosphatase (<127 U/L) 101 Creatine Kinase (30 - 135 U/L) 60 Troponin I (< 0.11 ng/ml) < 0.01 Total Protein (6.3 - 8.2 g/dL) 6.5 Albumin (3.5 - 5.0 g/dL) 4.1 Globulin (1.9 - 4.2 gm/dL) 2.4 Albumin/Globulin Ratio (1.1 - 2.2 %) 1.7 Coagulation PT (9.4 - 12.5 SEC) 10.6 INR (0.90 - 1.19) 1.01 APTT (25 - 37 SEC) 29 Hematology CBC w Diff NO MAN DIFF REQ WBC (4.8 - 10.8 /CUMM) 8.0 RBC (4.20 - 5.40 /CUMM) 4.22 Hgb (12.0 - 16.0 G/DL) 13.5 Hct (37 - 47 %) 40.8 MCV (81.0 - 99.0 FL) 96.5 MCH (27.0 - 31.0 PG) 31.9 H RDW (11.5 - 14.5 %) 14.3 Plt Count (130 - 400 /CUMM) 177 MPV (7.4 - 10.4 FL) 7.1 L Gran % (42.2 - 75.2 %) 84.7 H Lymphocytes % (20.5 - 51.1 %) 10.4 L Monocytes % (1.7 - 9.3 %) 4.5 Eosinophils % (0 - 5 %) 0.2 Basophils % (0.0 - 2.0 %) 0.2 Absolute Granulocytes (1.4 - 6.5 /CUMM) 6.8 H Absolute Lymphocytes (1.2 - 3.4 /CUMM) 0.8 L Absolute Monocytes (0.10 - 0.60 /CUMM) 0.4 Absolute Eosinophils (0.0 - 0.7 /CUMM) 0 Absolute Basophils (0.0 - 0.2 /CUMM) 0 PUBS MCHC (33.0 - 37.0 G/DL) 33.0 Toxicology Urine Opiates Screen (>2000 NG/ML) < 100.00 Methadone Screen (>300 NG/ML) 69 Barbiturate Screen (>200 NG/ML) < 60 Ur Phencyclidine Scrn (>25 NG/ML) < 6.00 Amphetamines Screen (>1000 NG/ML) < 100 U Benzodiazepines Scrn (>200 NG/ML) 95 Urine Cocaine Screen (>300 NG/ML) < 50 Urine Cannabis Screen (>50 NG/ML) 76.40 H Serum Alcohol (<10 MG/DL) < 10.0 Imaging Results: EXAM TYPE: RAD - XRY-FEMUR, LEFT 2 VIEWS; XRY-HIP 2-3 VIEWS, LEFT EXAMINATION: XR FEMUR and hip, LEFT CLINICAL INFORMATION: Pain post fall COMPARISON: None TECHNIQUE: AP view of the pelvis. AP and shoot through lateral view of the left hip. AP and lateral view of the left femur. FINDINGS: There is an impacted left femoral neck fracture. No other fracture is seen. The left hip joint and knee joint are unremarkable. Soft tissues are unremarkable. Bones of the pelvis are unremarkable. There is stool seen throughout the colon and dilatation of the bowel suggestive of constipation. IMPRESSION: Impacted left femoral neck fracture. DICTATED BY: ROLANDO HOGUE,ORIN Zarco DATE/TIME DICTATED:03/10/171057 FERRY PILOT:JENNIFER DATE/TIME TRANSCRIBED:03/10/171057 Assessment/Plan Assessment/Plan This 51 year old white female with history of alcohol abuse, hypothyroidism, venous insufficiency, and questionable polysubstance use, presents with impacted left femoral neck fracture s/p fall will need surgical repair once cleared mahmood currently in place will f/u head and neck CT pain control as needed dvt ppx until cleared will follow and d/w Problem List: 1. Fracture of femoral neck, left Copies To: OPAL HOGUE,MICHEAL Wolfe Consult Acknowledgment - Thank you for your consult request.
--- NOTE | 2017-03-10 12:44 | RADIOLOGY REPORT ---
EXAMINATION: XR PORTABLE CHEST CLINICAL INFORMATION: Left femoral neck fracture. COMPARISON: Chest done on 06/08/2009. TECHNIQUE: Portable frontal view of the chest was obtained. FINDINGS: Mild hyperinflated lung field is present bilaterally. Both lung severino are clear. The cardiomediastinal silhouette is within normal limits. There is no pleural effusion present. The visualized upper abdomen is unremarkable. No significant change since prior study. IMPRESSION: No acute cardiopulmonary disease.
--- NOTE | 2017-03-10 13:04 | CT SCAN REPORT ---
EXAMINATION: CT HEAD WITHOUT CONTRAST CT CERVICAL SPINE WITHOUT CONTRAST CLINICAL INFORMATION: A 51-year-old female with history of fall. Found to have left femoral neck fracture. COMPARISON: CT of the head done on 03/21/2011. TECHNIQUE: Noncontrast CT scan of the head and cervical spine, using standard protocol. Multiplanar reconstructed images are obtained. Multiplanar reconstructed images are also obtained. DLP: 916.96 mGy-cm. FINDINGS: CT OF THE HEAD: The brain parenchyma, ventricles, cisterns and sulci appear unremarkable. Specifically, no evidence of intra-axial mass, mass effect, extra-axial fluid collection, midline shift, acute intraparenchymal hemorrhage and/or acute infarction present. Both orbital globes, extraocular muscles, optic nerves appear bilaterally symmetric and are unremarkable. The bilateral mastoid air cells appear unremarkable. Soft tissue thickening consistent with focal sinusitis versus mucous retention cyst and/or polyp is noted within the included visualized posterior inferior part of the left maxillary sinus. CT OF THE CERVICAL SPINE: The height, alignment of the cervical vertebrae is well maintained. The posterior appendages are intact. The prespinal soft tissues are unremarkable. Incidental note is made of significant facet joint arthritic changes on the right between C2-C3, C3-C4, C4-C5 and C5-C6 with partial fusion of C2-C3. Moderate mid cervical dextroscoliosis is noted. Xhne-pr-ocopykak spondylosis is noted at C5-C6 and C6-C7. Nonspecific mild straightening of the cervical spine is also noted. Both lung apices are clear. IMPRESSION: 1. No acute intracranial pathology. 2. No CT evidence of any acute fracture no subluxation or dislocation or prespinal soft tissue hematoma present at the cervical spine. 3. Incidental note is made of focal sinusitis versus mucous retention cyst and/or polyp within the left maxillary sinus, and degenerative spondylosis, nonspecific straightening of the cervical spine and significant facet degenerative arthritic changes on the right with mid cervical moderate dextroscoliosis.
[2017-03-10] MEDS ORDERED: SEROQUEL200 M1 PO (14:19)
--- NOTE | 2017-03-10 15:02 | Cons- Orthopedic ---
General Information and HPI Consulting Request Date of Consult: 03/10/17 Requested By: RENETTA MOSQUEDA MD Reason for Consult: FRACTURED LEFT HIP History of Present Illness: PATIENT HAD A MECHANICAL FALL LAST EVENING AND SUSTAINED A DISPLACED LEFT SUBCAPITAL FRACTURE Allergies/Medications Allergies: Coded Allergies: NO KNOWN ALLERGIES (05/24/16) Home Med List: Aspirin (Children's Aspirin) (Unknown Strength) TAB.CHEW (Unknown Dose) UNKNOWN (Reported) Benztropine Mesylate (Benztropine) 1 MG TAB 1 TAB PO BEDTIME PSYCH HEALTH ( Reported) Diphenhydramine HCl (Benadryl) (Unknown Strength) CAP (Unknown Dose) SLEEP ( Reported) Levothyroxine Sodium 0.1 MG TAB 1 TAB PO DAILY HYPOTHYROID (Reported) Quetiapine Fumarate (Seroquel) 100 MG TAB 3 TAB PO QPM BIPOLAR (Reported) Quetiapine Fumarate (Seroquel) 200 MG TABLET 3 TAB PO QPM Psychosis Past History Medical History Neurological: NONE EENT: NONE Cardiovascular: NONE Respiratory: NONE Gastrointestinal: NONE Hepatic: NONE Renal: NONE Musculoskeletal: NONE Psychiatric: anxiety, bipolar disease, insomnia, psychosis Endocrine: hypothyroidism Other Medical Hx: venous insufficiency Surgical History Pertinent Surgical History: Psychosocial History Primary Language: Gibraltarian ETOH Use: occasional use Illicit Drug Use: denies illicit drug use Functional Ability ADLs Independent: dressing, eating, toileting, bathing. Ambulation: independent IADLs Independent: shopping, housework, finances, food prep, telephone, transportation , medication admin. Employment History Employment: Unemployed Exam & Diagnostic Data Vital Signs and I&O Vital Signs Date Time Temp Pulse Resp B/P B/P Pulse O2 O2 Flow FiO2 Mean Ox Delivery Rate 03/10 1447 99.2 80 24 162/81 03/10 1311 97.0 78 18 143/79 96 Room Air 03/10 1208 97.0 80 20 154/80 98 Room Air 03/10 1050 98.0 80 20 147/79 98 Room Air 03/10 0925 97.8 78 18 136/74 96 Room Air 03/10 0913 99 Room Air 03/10 0846 97.2 82 20 127/73 98 Room Air Intake & Output 03/10 1600 03/10 0800 03/10 0000 03/09 1600 03/09 0800 03/09 0000 Intake Total 0 Output Total Balance 0 Intake, Oral 0 Patient 140 lb Weight Weight Reported by Patient Measurement Method Physical Exam: PATIENT HAS LEFT HIP PAIN ONLY IS NEUROLOGICALLY INTACT IN THAT EXTREMITY. SHE IS POOR HISTORIAN. NO NECK PAIN NO UPPER EXTREMITY PAIN Assessment/Plan Assessment/Plan PATIENT A 51 Y/O FEMALE WITH LEFT DISPLACED HIP FRACTURE DISCUSSED WITH BOTH HER AND THE PATIENT ABOUT LEFT TOTAL HIP ARTHROPLASTY VS C[facility]SEA THEY AGREE THAT THE WANT THE TOTAL HIP DUE TO HER AGE. PLAN IS FOR LEFT TOTAL HIP ARTHROPLASTY. Consult Acknowledgment - Thank you for your consult request. Attending MD Review Statement Attending Statement Attending MD Statement: examined this patient
--- NOTE | 2017-03-10 19:12 | RADIOLOGY REPORT ---
EXAMINATION: XR HIP, LEFT CLINICAL INFORMATION: Status post total left hip arthroplasty. COMPARISON: Left hip radiographs done earlier the same day. TECHNIQUE: Two views of the left hip. FINDINGS: Prosthetic components of the left total hip arthroplasty are appropriately aligned. No periprosthetic fracture. Gas from recent surgery is present in the surrounding soft tissues. There are overlying surgical rosemarie. IMPRESSION: Normal postoperative appearance of the left total hip prosthesis.
[2017-03-10 22:41] VITALS: BP 126/62
--- NOTE | 2017-03-10 23:57 | Admission Certification ---
Admission Certification Certification Statement - As attending physician, I certify that at the time of - admission, based on clinical presentation, severity of - symptoms, need for further diagnostic testing and - therapeutic interventions, and risk of adverse outcomes - without in-hospital treatment, in my clinical assessment, - this patient requires an acute hospital stay for a minimum - of two nights or longer. I have also considered psychsocial - factors such as support system, advanced age, financial - issues, cognitive issues, and failed out-patient treatments, - past re-admission history, safety of patient, and lack of - compliance as applicable. Specific rationale supporting this admission is: Patient presents after mechanical fall with an impacted left femoral neck fracture. Needs acute surgical/orthopedic intervention. Will go to OR today as per Dr. Martinez.
[2017-03-11 07:37] VITALS: BP 138/78
--- NOTE | 2017-03-11 08:09 | PN- Orthopedic ---
Subjective Subjective: The patient was seen this morning postoperatively day 1. She reports that her pain is under adequate control and has no other complaints at the current time. Objective Vital Signs and I&Os Vital Signs Date Time Temp Pulse Resp B/P B/P Pulse O2 O2 Flow FiO2 Mean Ox Delivery Rate 03/11 0737 97.7 62 20 138/78 96 03/11 0000 Room Air 03/10 2241 97.4 79 20 126/62 94 Room Air 03/10 2232 95 Room Air Room Air 03/10 2200 Room Air Room Air 03/10 1447 99.2 80 24 162/81 03/10 1311 97.0 78 18 143/79 96 Room Air 03/10 1208 97.0 80 20 154/80 98 Room Air 03/10 1050 98.0 80 20 147/79 98 Room Air 03/10 0925 97.8 78 18 136/74 96 Room Air 03/10 0913 99 Room Air 03/10 0846 97.2 82 20 127/73 98 Room Air Intake & Output 03/11 1600 03/11 0800 03/11 0000 03/10 1600 03/10 0800 03/10 0000 Intake Total 900 600 0 Output Total 950 Balance -50 600 0 Intake, IV 800 300 Intake, Oral 100 300 0 Output, Urine 950 Patient 180 lb 140 lb Weight Weight Estimated Reported by Patient Measurement Method Physical Exam: Gen.: Alert and in no obvious distress Skin: Warm and dry Extremities: Bilateral lower extremities are warm without calf tenderness or significant edema. Gross motor and sensory are intact. Left hip surgical dressing is clean, dry, and intact. Assessment/Plan Assessment/Plan Assessment: 51-year-old female status post left total hip arthroplasty postoperative day #1. The patient is progressing as expected and her pain is under adequate control. Recommendations: Out of bed with physical therapy patient is weightbearing as tolerated Total hip precautions Continue current pain regiment GI and DVT prophylaxis Eliquis 2.5mg bid Hep-Lock IV fluids advance diet as tolerated Begin bowel regimen First surgical dressing change tomorrow
--- NOTE | 2017-03-11 08:21 | PN- Housestaff ---
MEET ADAMES 03/11/17 0821: Subjective Follow-up For: Status post mechanical fall with acute left femoral fracture status post a total hip arthroplasty Hypothyroidism Bipolar Narcolepsy Insomnia Psychosis Depression Anxiety Complaints: pain scale (0-10) Subjective: She was seen and examined this morning. She is alert awake and oriented to time place and person. No acute events noticed overnight. She denies any pain at the site of surgery. She offers no complaints today pod 1 Vital stable heart rate 70 respiratory rate 20 blood pressure 130/70, saturating at 95 on room air Remained afebrile Able to tolerate diet Review of Systems Constitutional: Reports: see HPI. Objective Last 24 Hrs of Vital Signs/I&O Vital Signs Date Time Temp Pulse Resp B/P B/P Pulse O2 O2 Flow FiO2 Mean Ox Delivery Rate 03/11 0737 97.7 62 20 138/78 96 03/11 0000 Room Air 03/10 2241 97.4 79 20 126/62 94 Room Air 03/10 2232 95 Room Air Room Air 03/10 2200 Room Air Room Air 03/10 1447 99.2 80 24 162/81 03/10 1311 97.0 78 18 143/79 96 Room Air Intake & Output 03/11 1600 03/11 0800 03/11 0000 Intake Total 900 600 Output Total 950 Balance -50 600 Intake, IV 800 300 Intake, Oral 100 300 Output, Urine 950 Patient 81.647 kg Weight Weight Estimated Measurement Method Physical Exam General Appearance: Alert, Oriented X3, Cooperative, No Acute Distress Skin: No Rashes, No Breakdown HEENT: Atraumatic, PERRLA Neck: Supple, No JVD Lymphatic: Cervical nl Cardiovascular: Normal S1, Normal S2 Lungs: Normal Air Movement Abdomen: Normal Bowel Sounds, Soft, No Tenderness Extremities: No Clubbing, No Cyanosis, No Edema Vascular: Normal Pulses, Pulses Symmetrical Current Medications: Current Medications Sig/Harsha Start time Last Medication Dose Route Stop Time Status Admin Acetaminophen 1,000 MG Q6 03/10 1800 AC 03/11 IV 1200 Acetaminophen 1,000 MG Q6P PRN 03/10 1430 DC IV Apixaban 2.5 MG BID 03/11 1000 AC 03/11 PO 0909 Aspirin 81 MG DAILY 03/11 1128 AC 03/11 PO 1213 Benztropine Mesylate 1 MG AT BEDTIME 03/11 2200 AC PO Cefazolin Sodium 2 GM Q8H 03/10 2300 DC 03/11 N/A 1 UNIT IV 03/11 0729 0606 Fentanyl Citrate 250 MCG .STK-MED ONE 03/10 1444 DC IM 03/10 1445 Hydromorphone HCl 2 MG .STK-MED ONE 03/10 1444 DC IM 03/10 1445 Ketorolac 15 MG Q6P PRN 03/10 1415 AC Tromethamine IV Levothyroxine Sodium 0.1 MG DAILY AC 03/11 0700 AC 03/11 PO 0607 Lidocaine 1 PAT Q24H 03/10 1415 AC EXT Morphine Sulfate 2 MG Q2-3 HRS NEEDED.. 03/10 1800 AC IV Morphine Sulfate 2 MG Q4P PRN 03/10 1415 DC IV Oxycodone HCl 5 MG Q4-6 PRN PRN 03/10 1800 AC PO Oxycodone HCl 10 MG Q4-6 PRN PRN 03/10 1800 AC PO Quetiapine Fumarate 600 MG AT BEDTIME 03/11 2200 AC PO Sodium Chloride 1,000 ML .Q10H 03/10 1415 DC 03/11 IV 0557 Sodium Chloride 1,000 ML BOLUS ONE 03/10 1145 DC 03/10 IV 03/10 1244 1210 Tranexamic Acid 1,000 MG .STK-MED ONE 03/10 1714 DC IV 03/10 1715 Tranexamic Acid 1,000 MG .STK-MED ONE 03/10 1533 DC IV 03/10 1534 Last 24 Hrs of Lab/Petar Results Last 24 Hrs of Labs/Mics: Laboratory Tests 03/11/17 0656: Anion Gap 4 L, Estimated GFR > 60, BUN/Creatinine Ratio 14.0, CBC w Diff NO MAN DIFF REQ, RBC 3.48 L, MCV 96.3, MCH 32.1 H, RDW 14.4, MPV 7.6, Gran % 74.0, Lymphocytes % 18.3 L, Monocytes % 7.4, Eosinophils % 0.1, Basophils % 0.2, Absolute Granulocytes 4.8, Absolute Lymphocytes 1.2, Absolute Monocytes 0.5, Absolute Eosinophils 0, Absolute Basophils 0, PUBS MCHC 33.3 Assessment/Plan Assessment: 51-year-old female with past medical history significant for psychosis, bipolar disorder, insomnia, narcolepsy, depression, anxiety, alcohol abuse, hypothyroidism presented to the [facility] following a mechanical fall. Patient was admitted in in patient psych few years ago in [place], where she was diagnosed and treated for aforementioned psychaitric diagnoses and has been folowing up with Alexia Wise MD at ([phone]; ext:[phone]). Vitals on admission-afebrile, heart rate 80, respiratory rate 20, blood pressure 136/72, saturating at 98 on room air CBCs normal BEP normal EKG-normal sinus rhythm QTC 443, no acute ST-T wave changes CT head and cervical spine CT normal Chest x-ray was normal X-ray showed impacted left femoral neck fracture Problem list 1. Acute impacted left hip fracture status post mechanical fall 2. Left hip total arthroplasty 3. Hypothyroidism 4. Bipolar disorder 5. Psychosis 6. Narcolepsy 7. DepressioN Acute left femoral fracture 51 year old female was BIBA with leg pain s/p fall. 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 She denies drinking alcohol or using any substances prior to the fall event. She is not sure of how she fell however she thinks she landed on her left side. She denies hitting her head during fall. She c/o pain in her left hip and left leg. She was not able to walk after she fell. She denies LOC, black out, or syncope. Prior to her fall she did not feel dizziness, lightheadedness, chest pain, palpitations, short of breath. Hip x-ray confirmed left impacted femoral neck fracture * Admitted to general medicine floor for further management * She is status post total left hip arthroplasty day 1 * monitor vitals closely every shift * Orthopedic's on board * Total hip precautions * Out of bed with physical therapy * Weight Bearing as tolerated * Pain management * DVT prophylaxis-eliqus 0.5 mg twice a day * diet as tolerated * Bowel regimen * Surgical dressing intact * Finished antibiotics postoperatively Acute blood loss anemia She is status post left total hip arthroplasty day 1. Hemoglobin and hematocrit on admission 18 and 41 * Hemoglobin 11 and hematocrit 33.5 today * Denies any lightheadedness or dizziness * Denies any shortness of breath or palpitations * No complaints * We will continue to monitor * Repeat CBC tomorrow hypothyroidism Continue home medication levothyroxine 0.1 mg daily Bipolar disorder Patient was admitted in in patient psych few years ago in [place], where she was diagnosed and treated for psychaitric diagnoses and has been folow up with Alexia Wise MD at * Denies any suicidal or homicidal ideations * patient usually takes Seroquel 600 mg at nighttime * We'll continue her home medication for now * Psychiatrist was consulted * Will follow psychiatric recommendations Social history Heavy smoker 2-3 PPD for >30Y Alcohol : randomly -last drink on Sunday - usually beer Cannabis: whenever she could get some random, last time was two days ago Psychosis patient is alert & oriented at present. Has been on Seroquel. * Will continue Seroquel and follow. * Will obtain psych input DNR/DNI Pain pathway Regular diet DVT prophylaxis- kei Problem List: 1. Fracture of femoral neck, left 2. Depression 3. Episodic mood disorder Pain Ratin Pain Location: left hip Pain Goal: Remain pain free Pain Plan: tylinol Tomorrow's Labs & Rationales: cbc in the setting of surgery, acute blood loss RENETTA MOSQUEDA MD 03/11/17 2233: Attending MD Review Statement Attending Statement Attending MD Statement: examined this patient, discuss w/resident/PA/LURE MAKER, agreed w/resident/PA/LURE MAKER, discussed with family, reviewed EMR data (avail), discussed with nursing, amended to note Attending Assessment/Plan: The patient was seen and discussed with house staff. Agree with the plan of care as outlined. H/H decreased due to normal acute blood loss from surgery. Case management to see tomorrow regarding rehab plans. Psych consult tomorrow as well.
[2017-03-11 08:30] LABS: ABSOLUTE BASOPHIL COUNT 0 /CUMM (0.0-0.2); ABSOLUTE EOSINOPHIL COUNT 0 /CUMM (0.0-0.7); ABSOLUTE MONOCYTE COUNT 0.5 /CUMM (0.10-0.60); EOSINOPHIL % 0.1 % (0-5)
[2017-03-11 09:06] LABS: ABSOLUTE GRANULOCYTE CT 4.8 /CUMM (1.4-6.5); ABSOLUTE LYMPH COUNT 1.2 /CUMM (1.2-3.4); BASOPHIL % 0.2 % (0.0-2.0); MEAN CORPUSCULAR HGB 32.1 PG (27.0-31.0); MEAN CORPUSCULAR HGB CONC 33.3 G/DL (33.0-37.0); MEAN CORPUSCULAR VOLUME 96.3 FL (81.0-99.0); MEAN PLATELET VOLUME 7.6 FL (7.4-10.4); PLATELET COUNT 157 /CUMM (130-400); RBC DISTRIBUTION WIDTH 14.4 % (11.5-14.5); RED BLOOD CELL CT 3.48 /CUMM (4.20-5.40); WHITE BLOOD CELL COUNT 6.5 /CUMM (4.8-10.8)
[2017-03-11 09:17] LABS: HEMATOCRIT 33.5 % (37-47)
--- NOTE | 2017-03-11 09:55 | PN- Orthopedic ---
Subjective Subjective: Patient doing well postop day 1 from a left total hip arthroplasty. She is comfortable in bed alert oriented. States she has minimal pain at this point. I went over positioning and restrictions of movement with a total hip arthroplasty. Objective Vital Signs and I&Os Vital Signs Date Time Temp Pulse Resp B/P B/P Pulse O2 O2 Flow FiO2 Mean Ox Delivery Rate 03/11 0737 97.7 62 20 138/78 96 03/11 0000 Room Air 03/10 2241 97.4 79 20 126/62 94 Room Air 03/10 2232 95 Room Air Room Air 03/10 2200 Room Air Room Air 03/10 1447 99.2 80 24 162/81 03/10 1311 97.0 78 18 143/79 96 Room Air 03/10 1208 97.0 80 20 154/80 98 Room Air 03/10 1050 98.0 80 20 147/79 98 Room Air Intake & Output 03/11 1600 03/11 0800 03/11 0000 03/10 1600 03/10 0800 03/10 0000 Intake Total 900 600 0 Output Total 950 Balance -50 600 0 Intake, IV 800 300 Intake, Oral 100 300 0 Output, Urine 950 Patient 180 lb 140 lb Weight Weight Estimated Reported by Patient Measurement Method Physical Exam: On physical examination she has good movement of the toes she's neurologically intact on the left side. The dressing is dry and clean. She has good passive range of motion of the hip into flexion and extension. Assessment/Plan Assessment/Plan Doing well postop day 1 status post left total hip arthroplasty. She will finish out her antibiotics she'll be seen by physical therapy she can ambulate weightbearing as tolerated with hip dislocation precautions. Core Measures/Miscellaneous Venous Thromboembolism VTE Risk Factors: Age > 40, Immobility, paresis VTE Contraindications: No Contraindications VTE Diagnosis: No VTE Type: NONE VTE Confirmed by (Test): NONE Beta Padmini Is Beta Padmini a Home Med? No Antibiotics Is Patient on Antibiotics? Yes Attending MD Review Statement Attending Statement Attending MD Statement: examined this patient
[2017-03-11 14:52] VITALS: BP 120/78
[2017-03-11 22:35] VITALS: BP 126/68
--- NOTE | 2017-03-11 22:36 | Cons- Psychiatry ---
Psychiatric Consult Date of Consult: 03/11/17 Reason for Consult: 51 y/o woman w/ hx dementia, hx alcohol use d/o, s/p fall with hip fracture, consult called for Qt prolongation and rec for antipsychotic medication. She is a poor historian and much of record obtained from the chart. Her at bedside is a fair historian, but is unable to give details regarding her psychiatric history apart to state that she has OCD and dementia, schizophrenia. 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 He said that she gets she takes seroquel for tension and did not know her dose. She had no idea what her current medications were. She denied drinking recently, however said she drank a few days ago, and that she drank whenever she gets her hands on it. that they have no home care services and that he tries to keep an eye on her as best he can. He stated that she was admitted for two weeks at some point psychiatrically but did not recall when. He stated that she sees Aliza Wise , [phone] at [facility] and has a conservator of Person, Ruth Estrada. He was not aware of any suicide attempts.Cognitively - she was oriented to person, place and location. She stated that Briseida was the president and could not recall Trumps name. She was able to recall 2/3 words after 5 minutes. She became distracted when asking her to name th months of the year - repeated, there are 12 months in a year and unable to name them. She remembered her wedding anniversary and how long the couple had been . She said, I am a smart girl, I know I don't have dementia I was reading a book about pain relievers, they were telling everyone how to be a doctorShe was seen in 2013 in [facility] for erratic behavior, she was deemed to need some nursing services, but did not inpatient psychiatric care, and she was discharged. A: 51 y/o woman w/ dementia, unclear psychiatric hx, alcohol use, s/p hip fracture. Her Qtc is 443. Per her , she is on seroquel 600mg daily; which is a high dose richi in light of her dementia dx. Would like to contact her primary mental health provider to determine extent of her sx off of medication, whether she could manage with a much lower dose, or to change to another medication with less qtc prolongation, ( was unable to give details apart from she is crazy) and risk/benefit of the med at this time. For acute agitation, avoid 1st gen (haldol for ex) antipsychotics as cause worsening qt prolongation compared to 2nd gen. continue current med; re-check EKG tmr. Psychiatry will follow. Allergies: Coded Allergies: NO KNOWN ALLERGIES (05/24/16) Past History Past Medical History Neurological: NONE EENT: NONE Cardiovascular: NONE Respiratory: NONE Gastrointestinal: NONE Hepatic: NONE Renal: NONE Musculoskeletal: NONE Psychiatric: anxiety, bipolar disease, insomnia, psychosis Endocrine: hypothyroidism Past Surgical History Surgical History: Psychosocial History Strengths/Capabilities: actively working on sobriety, takes meds/attends OP appts Physical Limitations (Interventions): none Psychiatric Treatment History Diagnosis: ETOH, pt denies, pt denies psych s/s Risk Factors: SA/MH hospitalized, substance abuse
[2017-03-12 06:00] VITALS: BP 110/64
[2017-03-12 07:04] VITALS: BP 110/64
--- NOTE | 2017-03-12 07:30 | PN- Orthopedic ---
Subjective Subjective: POD#2 S/P LEFT KVNG FOR LEFT HIP FRACTURE NO MAJOR ISSUES OVERNIGHT DENIES CP, SOB, NO N+V WITH DIET AMBULATED YESTERDAY WITH PT WITHOUT DIFFICULTY PAIN CONTROLLED WITH PAIN MEDS Objective Vital Signs and I&Os Vital Signs Date Time Temp Pulse Resp B/P B/P Pulse O2 O2 Flow FiO2 Mean Ox Delivery Rate 03/12 0704 97.8 80 20 110/64 97 Room Air 03/11 2235 99.5 86 18 126/68 96 Room Air 03/11 1452 97.9 84 20 120/78 98 Room Air 03/11 0737 97.7 62 20 138/78 96 Intake & Output 03/12 0800 03/12 0000 03/11 1600 03/11 0800 03/11 0000 03/10 1600 Intake Total 800 900 600 0 Output Total 400 950 Balance 800 -400 -50 600 0 Intake, IV 800 300 Intake, Oral 800 100 300 0 Output, Urine 400 950 Patient 180 lb 140 lb Weight Weight Estimated Reported by Patient Measurement Method Physical Exam: LEFT LE: DRSG CHANGED WOUND CD/I NO CALF TENDERNESS TO PALP BILAT DISTAL CMS INTACT THIGH SOFT TO PALP Assessment/Plan Assessment/Plan ORTHO STABLE PLAN F/U AM LABS ELIQUIS BID FOR DVT PROPHYLAXIS CONT OOB WITH PT/STAIRS LEFT POSTERIOR HIP PRECAUTIONS WEAN IV PAIN MEDS D/C PLANNING
--- NOTE | 2017-03-12 07:35 | PN- Housestaff ---
MEET ADAMES 03/12/17 0735: Subjective Follow-up For: Status post mechanical fall with acute left femoral fracture status post a total hip arthroplasty Hypothyroidism Bipolar Narcolepsy Insomnia Psychosis Depression Anxiety Complaints: pain scale (0-10) Subjective: She was seen and examined this morning. She is alert awake and oriented to time place and person. No acute events noticed overnight. She denies any pain at the site of surgery. She offers no complaints today pod 2 oob pt on board Vital stable heart rate 70 respiratory rate 20 blood pressure 130/70, saturating at 95 on room air Remained afebrile Able to tolerate diet Review of Systems Constitutional: Reports: see HPI. Objective Last 24 Hrs of Vital Signs/I&O Vital Signs Date Time Temp Pulse Resp B/P B/P Pulse O2 O2 Flow FiO2 Mean Ox Delivery Rate 03/12 1407 98.4 78 20 110/64 97 Room Air 03/12 1230 4.0 03/12 1137 Room Air Room Air 03/12 1110 Room Air Room Air 03/12 0704 97.8 80 20 110/64 97 Room Air 03/12 0600 97.8 80 20 110/64 03/11 2235 99.5 86 18 126/68 96 Room Air Intake & Output 03/12 1600 03/12 0800 03/12 0000 Intake Total 900 120 800 Output Total 350 325 Balance 550 -205 800 Intake, Oral 900 120 800 Output, Urine 350 325 Physical Exam General Appearance: Alert, Oriented X3, Cooperative, No Acute Distress Skin: No Rashes, No Breakdown, No Significant Lesion HEENT: Atraumatic, PERRLA, EOMI, Mucous Membr. moist/pink Neck: Supple, No JVD Lymphatic: Cervical nl Cardiovascular: Normal S1, Normal S2 Lungs: Normal Air Movement Abdomen: Normal Bowel Sounds, Soft, No Tenderness Extremities: No Clubbing, No Cyanosis, No Edema Vascular: Pulses Symmetrical Current Medications: Current Medications Sig/Harsha Start time Last Medication Dose Route Stop Time Status Admin Acetaminophen 1,000 MG Q6 03/10 1800 AC 03/12 IV 1136 Apixaban 2.5 MG BID 03/11 1000 AC 03/12 PO 1011 Aspirin 81 MG DAILY 03/11 1128 AC 03/12 PO 1011 Benztropine Mesylate 1 MG AT BEDTIME 03/11 2200 AC 03/11 PO 2228 Ketorolac 15 MG Q6P PRN 03/10 1415 AC Tromethamine IV Levothyroxine Sodium 0.1 MG DAILY AC 03/11 0700 AC 03/12 PO 0611 Lidocaine 1 PAT Q24H 03/10 1415 AC 03/11 EXT 1339 Morphine Sulfate 2 MG Q2-3 HRS NEEDED.. 03/10 1800 AC IV Nicotine 21 MG DAILY 03/12 1355 AC TOP Oxycodone HCl 5 MG Q4-6 PRN PRN 03/10 1800 AC PO Oxycodone HCl 10 MG Q4-6 PRN PRN 03/10 1800 AC 03/12 PO 1014 Patient Medication 1 ED .STK-MED ONE 03/12 1354 DC Teaching ED 03/12 1355 Polyethylene Glycol 17 GM DAILY PRN 03/11 1230 AC PO Quetiapine Fumarate 600 MG AT BEDTIME 03/11 2200 AC 03/11 PO 2228 Senna/Docusate Sodium 2 TAB DAILY PRN 03/11 1230 AC PO Last 24 Hrs of Lab/Petar Results Last 24 Hrs of Labs/Mics: Laboratory Tests 03/12/17 0612: CBC w Diff NO MAN DIFF REQ, RBC 3.25 L, MCV 96.8, MCH 32.3 H, RDW 14.4, MPV 7.4, Gran % 64.9, Lymphocytes % 26.3, Monocytes % 7.9, Eosinophils % 0.5, Basophils % 0.4, Absolute Granulocytes 3.3, Absolute Lymphocytes 1.4, Absolute Monocytes 0.4, Absolute Eosinophils 0, Absolute Basophils 0, PUBS MCHC 33.4 Assessment/Plan Assessment: 51-year-old female with past medical history significant for psychosis, bipolar disorder, insomnia, narcolepsy, depression, anxiety, alcohol abuse, hypothyroidism presented to the [facility] following a mechanical fall. Patient was admitted in in patient psych few years ago in [place], where she was diagnosed and treated for aforementioned psychaitric diagnoses and has been folowing up with Alexia Wise MD at ([phone]; ext:[phone]). Vitals on admission-afebrile, heart rate 80, respiratory rate 20, blood pressure 136/72, saturating at 98 on room air CBCs normal BEP normal EKG-normal sinus rhythm QTC 443, no acute ST-T wave changes CT head and cervical spine CT normal Chest x-ray was normal X-ray showed impacted left femoral neck fracture Problem list 1. Acute impacted left hip fracture status post mechanical fall 2. Left hip total arthroplasty 3. Hypothyroidism 4. Bipolar disorder 5. Psychosis 6. Narcolepsy 7. DepressioN Acute left femoral fracture 51 year old female was BIBA with leg pain s/p fall. 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 She denies drinking alcohol or using any substances prior to the fall event. She is not sure of how she fell however she thinks she landed on her left side. She denies hitting her head during fall. She c/o pain in her left hip and left leg. She was not able to walk after she fell. She denies LOC, black out, or syncope. Prior to her fall she did not feel dizziness, lightheadedness, chest pain, palpitations, short of breath. Hip x-ray confirmed left impacted femoral neck fracture * Admitted to general medicine floor for further management * She is status post total left hip arthroplasty day 2 * monitor vitals closely every shift * Orthopedic's on board * Total hip precautions * Out of bed with physical therapy * Weight Bearing as tolerated * Pain management * DVT prophylaxis-eliqus 0.5 mg twice a day * diet as tolerated * Bowel regimen * Surgical dressing intact * Finished antibiotics postoperatively Acute blood loss anemia She is status post left total hip arthroplasty day 1. Hemoglobin and hematocrit on admission 13 and 41 * Hemoglobin 10 and hematocrit 31.5 today * Denies any lightheadedness or dizziness * Denies any shortness of breath or palpitations * No complaints * We will continue to monitor * Repeat CBC tomorrow hypothyroidism Continue home medication levothyroxine 0.1 mg daily Bipolar disorder Patient was admitted in in patient psych few years ago in [place], where she was diagnosed and treated for psychaitric diagnoses and has been folow up with Alexia Wise MD at * Denies any suicidal or homicidal ideations * patient usually takes Seroquel 600 mg at nighttime * We'll continue her home medication for now * Psychiatrist was consulted * Will follow psychiatric recommendations Social history Heavy smoker 2-3 PPD for >30Y Alcohol : randomly -last drink on Sunday - usually beer Cannabis: whenever she could get some random, last time was two days ago Psychosis patient is alert & oriented at present. Has been on Seroquel. * Will continue Seroquel and follow. * Continue home medications benztropine 1 mg at bedtime * obtained psych input * Continue psychotropics as currently ordered. * Plan to restart the naltrexone 1 week after discontinuation of opioid medications. This will likely have to happen on an outpatient basis. DNR/DNI Pain pathway Regular diet DVT prophylaxis- kei Problem List: 1. Fracture of femoral neck, left Pain Ratin Pain Location: left hip Pain Goal: Remain pain free Pain Plan: tylinol morphine Tomorrow's Labs & Rationales: cbc in the setting of surgery and anemia RENETTA MOSQUEDA MD 03/12/173: Attending MD Review Statement Attending Statement Attending MD Statement: examined this patient, discuss w/resident/PA/NOZZLEMAN, agreed w/resident/PA/NOZZLEMAN, discussed with family, reviewed EMR data (avail), discussed with nursing, discussed with case mgmt, amended to note Attending Assessment/Plan: The patient was seen and discussed with house staff. Agree with plan of care as outlined. Will need STR.
[2017-03-12 08:38] LABS: ABSOLUTE BASOPHIL COUNT 0 /CUMM (0.0-0.2); ABSOLUTE EOSINOPHIL COUNT 0 /CUMM (0.0-0.7); ABSOLUTE GRANULOCYTE CT 3.3 /CUMM (1.4-6.5); ABSOLUTE LYMPH COUNT 1.4 /CUMM (1.2-3.4); ABSOLUTE MONOCYTE COUNT 0.4 /CUMM (0.10-0.60); BASOPHIL % 0.4 % (0.0-2.0); EOSINOPHIL % 0.5 % (0-5); GRANULOCYTE % 64.9 % (42.2-75.2); HEMATOCRIT 31.5 % (37-47); MEAN CORPUSCULAR HGB 32.3 PG (27.0-31.0); MEAN CORPUSCULAR HGB CONC 33.4 G/DL (33.0-37.0); MEAN CORPUSCULAR VOLUME 96.8 FL (81.0-99.0); MEAN PLATELET VOLUME 7.4 FL (7.4-10.4); PLATELET COUNT 127 /CUMM (130-400); RBC DISTRIBUTION WIDTH 14.4 % (11.5-14.5); RED BLOOD CELL CT 3.25 /CUMM (4.20-5.40); WHITE BLOOD CELL COUNT 5.1 /CUMM (4.8-10.8)
--- NOTE | 2017-03-12 13:40 | Operative Report ---
Operative/Inv Procedure Report Surgery Date: 03/10/17 Name of Procedure: Left total hip arthroplasty Pre-Operative Diagnosis: Left femoral neck fracture Post-Operative Diagnosis: Same Estimated Blood Loss: 300 cc Surgeon/Director Educational Radio: lisa Martinez Anesthesia: general endotracheal tube IV Fluids: See anesthesia record Implants: Himanshu accolade to total hip stem size 6, 48 acetabular shell 32 mm head -4 neck length Drains: None Specimens: Left femoral head Complications: None Condition: Stable Operative Indication: Patient 51-year-old female who had a mechanical fall resulting in a displaced left femoral neck fracture. Due to her young age and excellent medical condition and decision was made to place a left total hip arthroplasty as opposed to a hemiarthroplasty. The risks and benefits of the procedure were discussed with the patient detail and she wished to proceed. a skill set of hands was necessary provided by Dr. You Martinez radio positioning and retraction throughout the case. Operative/Procedure Note Note: Once informed consent was obtained and the correct limb was identified job. Based on table in the supine position. After administration of general endotracheal anesthesia the patient was in her right lower back. His position without axillar roll in place and all bony prominences well padded. Unfortunately is prepped and draped in sterile fashion. Skin incision made for posterior approach to the hip. Sharp dissection carried down through skin and subcutaneous tissue. Copious Vadim fascia was incised and the gluteus vadim was bluntly dissected. Retractors are placed deep to the gluteus medius muscle belly. Retractors placed around the femoral neck. The piriformis tendon was identified and released from its insertion. A retractor was then repositioned underneath or deep to the gluteus medius and expose the gluteus minimus. This exposed the hip capsule a capsulotomy was performed. The femoral neck fractures identified and the femoral head is removed with corkscrew. Once this was done acetabulum was cleaned of any pulsatile are. The femoral neck cut was then freshened just below the fracture 1 fingerbreadth above the lesser trochanter. Excess bone was removed with a rongeur. Attention was then turned to the acetabulum. We began reaming with a 44 reamer and reamed up to a size 47 reamer. Bleeding bone was obtained and we tried a 48 acetabular shell. This had a good fit and was chosen as the appropriate acetabular shell. A size 48 acetabular shell was opened and placed into the cup using press fit technique. No screws were needed for fixation. The liner was opened and locked into place. Attention was then turned to the femoral side of the fracture. The leg was internally rotated and the femoral canal was opened a box osteotome removing an anterolateral neck bone as well. Initial reamer was placed down the canal and then we sequentially broached the femur up to a size 6 broach. A size 6 broach was found to be an excellent fit and was left in place for trial reduction. A 32 mm head with a standard neck length was placed and the hip was reduced. Leg length was slightly off appointment to -4 neck length. The hip was again reduced and leg lengths are equal with stability excellent and 90 of flexion with 30 of internal rotation and 30 of right ear duction. The hip was redislocated and the components removed. The canal was pulse lavaged. A size 6 Accolate 2 total hip stem was opened and placed down the canal using press fit technique. A 32 mm head with a -4 neck length was opened and placed onto the stem. The hip was reduced and taken through range of motion and found to be stable. The wound was then pulse lavaged and the capsule was repaired with #2 Tycron sutures. The fascia from the gluteus vadim was then repaired with a running looped #1 PDS suture. The wound was then pulse lavaged again and the deep tissues were closed with #1 Vicryl and the sutures and subcuticular tissues closed with 2-0 Vicryl and his sutures. Caleb were used to close the skin and a sterile dressing was applied. Abduction pillow was placed and the patient was awakened from anesthesia and taken recovery room in stable condition.
--- NOTE | 2017-03-12 13:43 | PN- Psychiatry ---
Assessment/Plan Impression: Identifying Info: 51-year-old concerved female presents to [facility] on status post fall and required left total hip arthroplasty. She has a known history of dementia, alcohol use disorder, OCD. SUBJECTIVE Patient states "I feel a lot better today more relaxed." She has no complaints today beyond wishing she could have a cigarette. She typically smokes 1-2 packs daily. Patient interviewed with her , Bhavin at bedside. He is worried about caring for his at home as she is having his own surgery within the next month. Brief ROS Gait: Impaired Sleep:Adequate Appetite: Poor OBJECTIVE Mental Status Exam Presentation/Appearance: Cooperative with evaluation to best of her ability. Hospital garb. Sitting next to bed. Orientation: x4 Sensorium: Awake and alert Eye contact: Appropriate Affect: Somewhat blunted but congruent with stated mood Mood: "Relaxed" Depression: Denies Anxiety: Denies Thought Content: - Denies SI/HI, AH/VH, PI. States and also believes they will not kill themselves. - Denies Hopeless/Helpless Thoughts Thought Process: Tangential. At times patient has difficulty responding appropriately to assessment questions. Associations: Loose at times Speech: Normal tone and rate Judgment: Fair Insight: Fair Cognition: Memory: Deficits noted. Able to recall 3 objects at one minute Attention/Concentration: Unable to complete serial sevens, or simple counting tasks Fund of Knowledge: Fair Abstraction: Unable to respond to question appropriately MMSE: Not completed spoke to Tiffany at [facility] who confirmed the patient's diagnoses as (F02.81) dementia in other diseases classified elsewhere, (F10.20) alcohol use disorder severe, and (F42.2) mixed obsessional thoughts and acts. Medications doses confirmed as Seroquel 600 mg nightly Cogentin 1 mg nightly, and naltrexone 50 mg daily. Left message with Aliza Wise [phone], [phone] at [facility] to call back for collateral information. ASSESSMENT 51-year-old female with psychiatric history presents status post fall. At present she has no complaints and is in good behavioral control. Would be prudent to gather additional collateral information and continue her medications as they are home. Patient is currently stable psychiatrically. Diagnosis Alcohol use disorder severe Dementia Mixed obsessional thoughts and acts Unspecified psychosis A total of 40 minutes was spent with the patient with more than 50% of the time spent in counseling and/or coordination of care. Suggestion: 1. Continue psychotropics as currently ordered. 2. Plan to restart the naltrexone 1 week after discontinuation of opioid medications. This will likely have to happen on an outpatient basis. 3. We have ordered nicotine patch 21 mg daily. Thank you for including psychiatry in this case we will only follow on an as- needed basis. Subjective Subjective: as above Objective Last 24 Hrs of Vital Signs/I&O Current Medications Sig/Harsha Start time Last Medication Dose Route Stop Time Status Admin Acetaminophen 1,000 MG Q6 03/10 1800 AC 03/12 IV 1136 Apixaban 2.5 MG BID 03/11 1000 AC 03/12 PO 1011 Aspirin 81 MG DAILY 03/11 1128 AC 03/12 PO 1011 Benztropine Mesylate 1 MG AT BEDTIME 03/11 2200 AC 03/11 PO 2228 Ketorolac 15 MG Q6P PRN 03/10 1415 AC Tromethamine IV Levothyroxine Sodium 0.1 MG DAILY AC 03/11 0700 AC 03/12 PO 0611 Lidocaine 1 PAT Q24H 03/10 1415 AC 03/11 EXT 1339 Morphine Sulfate 2 MG Q2-3 HRS NEEDED.. 03/10 1800 AC IV Oxycodone HCl 5 MG Q4-6 PRN PRN 03/10 1800 AC PO Oxycodone HCl 10 MG Q4-6 PRN PRN 03/10 1800 AC 03/12 PO 1014 Patient Medication 1 ED .STK-MED ONE 03/12 1354 NM Teaching ED 03/12 1355 Polyethylene Glycol 17 GM DAILY PRN 03/11 1230 AC PO Quetiapine Fumarate 600 MG AT BEDTIME 03/11 2200 AC 03/11 PO 2228 Senna/Docusate Sodium 2 TAB DAILY PRN 03/11 1230 AC PO Laboratory Tests 03/12/17 0612: CBC w Diff NO MAN DIFF REQ, RBC 3.25 L, MCV 96.8, MCH 32.3 H, RDW 14.4, MPV 7.4, Gran % 64.9, Lymphocytes % 26.3, Monocytes % 7.9, Eosinophils % 0.5, Basophils % 0.4, Absolute Granulocytes 3.3, Absolute Lymphocytes 1.4, Absolute Monocytes 0.4, Absolute Eosinophils 0, Absolute Basophils 0, PUBS MCHC 33.4 Vital Signs Date Time Temp Pulse Resp B/P B/P Pulse O2 O2 Flow FiO2 Mean Ox Delivery Rate 03/12 1230 4.0 03/12 1137 Room Air Room Air 03/12 1110 Room Air Room Air 03/12 0704 97.8 80 20 110/64 97 Room Air 03/12 0600 97.8 80 20 110/64 03/11 2235 99.5 86 18 126/68 96 Room Air 03/11 1452 97.9 84 20 120/78 98 Room Air Intake & Output 03/12 1600 03/12 0800 03/12 0000 Intake Total 120 800 Output Total 350 325 Balance -350 -205 800 Intake, Oral 120 800 Output, Urine 350 325
[2017-03-12 14:07] VITALS: BP 110/64
[2017-03-12] MEDS ORDERED: SENNA PLUS TAB1 EACH PO (15:33)
[2017-03-12] MEDS ORDERED: ELIQUIS2.5 M1 PO (15:33)
[2017-03-12] MEDS ORDERED: MIRALAX119 GM PO (15:33)
[2017-03-12] MEDS ORDERED: QUETIAPINE FUM100 M1 PO (15:33)
--- NOTE | 2017-03-12 15:35 | Patient Discharge Instructions ---
Discharge Instructions General Discharge Information You were seen/treated for: Acute impacted left hip fracture status post total left hip arthroplasty You had these procedures: Left total hip arthroplasty Special Instructions: Please follow-up with primary care physician within 1 week after discharge Please follow-up with orthopedics in 1-2 weeks after discharge Please take eliqus 2.5 mg tablet twice a day for DVT prophylaxis for 3 months. Diet Continue normal diet: Yes Activity Full Activity/No Limits: Yes Acute Coronary Syndrome Inclusion Criteria At DC or during hospital stay patient has or had the following: ACS DIAGNOSIS No Discharge Core Measures Meds if any: Prescribed or Continued at Discharge Meds if any: NOT Prescribed or Continued at Discharge Congestive Heart Failure Inclusion Criteria At DC or during hospital stay patient has or had the following: CHF DIAGNOSIS No Discharge Core Measures Meds if any: Prescribed or Continued at Discharge Meds if any: NOT Prescribed or Continued at Discharge Cerebrovascular accident Inclusion Criteria At DC or during hospital stay patient has or had the following: CVA/TIA Diagnosis No Discharge Core Measures Meds if any: Prescribed or Continued at Discharge Meds if any: NOT Prescribed or Continued at Discharge Venous thromboembolism Inclusion Criteria VTE Diagnosis No VTE Type NONE VTE Confirmed by (Test) NONE Discharge Core Measures - Per Current guidelines, there needs to be overlap - treatment for the first 5 days of Warfarin therapy. - If discharged on Warfarin prior to 5 days of - overlap therapy, the patient will need to be - assessed for post discharge needs including - *Post discharge parental anticoagulation - *Warfarin and/or parental anticoagulation education - *Follow up date to check INR post discharge At least 5 days overlap therapy as Inpatient No Meds if any: Prescribed or Continued at Discharge Note: Overlap Therapy is Warfarin and Anticoagulant Meds if any: NOT Prescribed or Continued at Discharge
[2017-03-12 22:10] VITALS: BP 138/72
[2017-03-13 06:39] VITALS: BP 120/76
--- NOTE | 2017-03-13 07:27 | PN- Housestaff ---
MEET ADAMES 03/13/17 0727: Subjective Follow-up For: Status post mechanical fall with acute left femoral fracture status post a total hip arthroplasty Hypothyroidism Bipolar Narcolepsy Insomnia Psychosis Depression Anxiety Complaints: pain scale (0-10) Subjective: She was seen and examined this morning. She is alert awake and oriented to time place and person. No acute events noticed overnight. She denies any pain at the site of surgery. She offers no complaints today pod 3 oob pt on board Vital stable heart rate 70 respiratory rate 20 blood pressure 130/70, saturating at 95 on room air Remained afebrile Able to tolerate diet Review of Systems Constitutional: Reports: see HPI. Objective Last 24 Hrs of Vital Signs/I&O Vital Signs Date Time Temp Pulse Resp B/P B/P Pulse O2 O2 Flow FiO2 Mean Ox Delivery Rate 03/13 0639 98.3 89 20 120/76 97 Room Air 03/12 2210 99.2 99 20 138/72 96 Room Air 03/12 1407 98.4 78 20 110/64 97 Room Air 03/12 1230 4.0 Intake & Output 03/13 1600 03/13 0800 03/13 0000 Intake Total 580 600 Output Total 375 500 Balance 205 100 Intake, IV 100 Intake, Oral 480 600 Output, Urine 375 500 Physical Exam General Appearance: Alert, Oriented X3, Cooperative, No Acute Distress Skin: No Rashes, No Breakdown HEENT: Atraumatic, PERRLA, EOMI Neck: Supple, No JVD Lymphatic: Axillary nl, Cervical nl Cardiovascular: Normal S1, Normal S2 Lungs: Normal Air Movement Abdomen: Normal Bowel Sounds, Soft, No Tenderness Neurological: Strength at 5/5 X4 Ext, Normal Tone, Sensation Intact, Cranial Nerves 3-12 NL Extremities: No Clubbing, No Cyanosis, No Edema Vascular: Normal Pulses, Pulses Symmetrical Current Medications: Current Medications Sig/Harsha Start time Last Medication Dose Route Stop Time Status Admin Acetaminophen 1,000 MG Q6 03/10 1800 AC 03/13 IV 0553 Apixaban 2.5 MG BID 03/11 1000 AC 03/13 PO 1008 Aspirin 81 MG DAILY 03/11 1128 AC 03/13 PO 1009 Benztropine Mesylate 1 MG AT BEDTIME 03/11 2200 AC 03/12 PO 2159 Ketorolac 15 MG Q6P PRN 03/10 1415 AC Tromethamine IV Levothyroxine Sodium 0.1 MG DAILY AC 03/11 0700 AC 03/13 PO 0652 Lidocaine 1 PAT Q24H 03/10 1415 03/12 EXT 1609 Morphine Sulfate 2 MG Q2-3 HRS NEEDED.. 03/10 1800 AC IV Nicotine 21 MG DAILY 03/12 1355 03/13 TOP 1009 Oxycodone HCl 5 MG Q4-6 PRN PRN 03/10 1800 AC PO Oxycodone HCl 10 MG Q4-6 PRN PRN 03/10 1800 AC 03/12 PO 2009 Patient Medication 1 ED .STK-MED ONE 03/12 1354 FL Teaching ED 03/12 1355 Polyethylene Glycol 17 GM DAILY PRN 03/11 1230 AC PO Quetiapine Fumarate 600 MG AT BEDTIME 03/11 2200 AC 03/12 PO 2159 Senna/Docusate Sodium 2 TAB DAILY PRN 03/11 1230 AC 03/12 PO 2159 Last 24 Hrs of Lab/Petar Results Last 24 Hrs of Labs/Mics: Laboratory Tests 03/13/17 0636: CBC w Diff NO MAN DIFF REQ, RBC 3.47 L, MCV 97.2, MCH 32.3 H, RDW 14.2, MPV 7.3 L, Gran % 70.3, Lymphocytes % 21.1, Monocytes % 8.0, Eosinophils % 0.3, Basophils % 0.3, Absolute Granulocytes 4.0, Absolute Lymphocytes 1.2, Absolute Monocytes 0.5, Absolute Eosinophils 0, Absolute Basophils 0, PUBS MCHC 33.3 Assessment/Plan Assessment: 51-year-old female with past medical history significant for psychosis, bipolar disorder, insomnia, narcolepsy, depression, anxiety, alcohol abuse, hypothyroidism presented to the [facility] following a mechanical fall. Patient was admitted in in patient psych few years ago in [place], where she was diagnosed and treated for aforementioned psychaitric diagnoses and has been folowing up with Alexia Wise MD at ([phone]; ext:[phone]). Vitals on admission-afebrile, heart rate 80, respiratory rate 20, blood pressure 136/72, saturating at 98 on room air CBCs normal BEP normal EKG-normal sinus rhythm QTC 443, no acute ST-T wave changes CT head and cervical spine CT normal Chest x-ray was normal X-ray showed impacted left femoral neck fracture Problem list 1. Acute impacted left hip fracture status post mechanical fall 2. Left hip total arthroplasty 3. Hypothyroidism 4. Bipolar disorder 5. Psychosis 6. Narcolepsy 7. DepressioN Acute left femoral fracture 51 year old female was BIBA with leg pain s/p fall. 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 She denies drinking alcohol or using any substances prior to the fall event. She is not sure of how she fell however she thinks she landed on her left side. She denies hitting her head during fall. She c/o pain in her left hip and left leg. She was not able to walk after she fell. She denies LOC, black out, or syncope. Prior to her fall she did not feel dizziness, lightheadedness, chest pain, palpitations, short of breath. Hip x-ray confirmed left impacted femoral neck fracture * Admitted to general medicine floor for further management * She is status post total left hip arthroplasty day 3 * monitor vitals closely every shift * Orthopedic's on board * Total hip precautions * Out of bed with physical therapy * Weight Bearing as tolerated * Pain management * DVT prophylaxis-eliqus 0.5 mg twice a day * diet as tolerated * Bowel regimen * Surgical dressing intact * Finished antibiotics postoperatively Acute blood loss anemia She is status post left total hip arthroplasty day 1. Hemoglobin and hematocrit on admission 13 and 41 * Hemoglobin 11.2 and hematocrit 34 today * Denies any lightheadedness or dizziness * Denies any shortness of breath or palpitations * No complaints * We will continue to monitor hypothyroidism Continue home medication levothyroxine 0.1 mg daily Bipolar disorder Patient was admitted in in patient psych few years ago in [place], where she was diagnosed and treated for psychaitric diagnoses and has been folow up with Alexia Wise MD at * Denies any suicidal or homicidal ideations * patient usually takes Seroquel 600 mg at nighttime * We'll continue her home medication for now * Psychiatrist was consulted * Will follow psychiatric recommendations Social history Heavy smoker 2-3 PPD for >30Y Alcohol : randomly -last drink on Sunday - usually beer Cannabis: whenever she could get some random, last time was two days ago Psychosis patient is alert & oriented at present. Has been on Seroquel. * Will continue Seroquel and follow. * Continue home medications benztropine 1 mg at bedtime * obtained psych input * Continue psychotropics as currently ordered. * Plan to restart the naltrexone 1 week after discontinuation of opioid medications. This will likely have to happen on an outpatient basis. FAMILY REPORTED PT HAS DEMENTIA WE DID MMSE SHE SCORED 29/30 NO COGNITIVE IMPAIRMENT DNR/DNI Pain pathway Regular diet DVT prophylaxis- [facility] Problem List: 1. Fracture of femoral neck, left Pain Ratin Pain Location: LEFT HIP Pain Goal: Remain pain free Pain Plan: OXICODONE TYLINOL Tomorrow's Labs & Rationales: NONE RENETTA MOSQUEDA MD 03/13/17 2139: Attending MD Review Statement Attending Statement Attending MD Statement: examined this patient, discuss w/resident/PA/UNINDENTURED APPRENTICE, agreed w/resident/PA/UNINDENTURED APPRENTICE, reviewed EMR data (avail), discussed with nursing, discussed with case mgmt, amended to note Attending Assessment/Plan: The patient was seen and discussed with house staff. As above, mini mental status exam 29/30 indicating no significant dementia. This diagnosis has been propagated through her chart as states she has dementia. Also had discussion with patient regarding advanced directives and she understands and now wishes to be a full code. Will need to arrange for living will as OP. OK to discharge to [facility] today.
--- NOTE | 2017-03-13 07:51 | Discharge Summary ---
Visit Information Visit Dates Admission Date: 03/10/17 Discharge Date: 03/13/2017 Hospital Course Course Attending Physician: RENETTA MOSQUEDA MD Primary Care Physician: OPAL HOGUE,MICHEAL Wolfe Hospital Course: The patient is a 51 yo female with h/o psychosis (?), former smoker, who presented in the [facility] after a mechanical fall that occurred at home. She sustained an impacted left femoral neck fracture. She has a diagnosis of "narcolepsy". She had had some alcohol at the time of the fall, however level was low on admission. She denied any LOC, although did strike her head. CT head and neck done in ED were not remarkable. ROS: let hip pain. VS: T 97.2, P 82, R 20, BP 127/73, PO 98% RAOrthopedics requested medical evaluation prior to surgery.Physical Exam: was siginficant for +1B/L pitting edema of lower extremities,left hip rotated inward. She was admitted under medical service for same day surgical left hip replacement. Based on surgery report patient lost 300 ml of blood. The remainder of the operation was remarkably uneventful. Post- op patient develpo an acute anemia of blood loss (H&H: 11.2/33.8) from initial values of 13.5/40.8. Patint was also assessed by psychiatry LOCK FITTER, who contacted patient's outpatient psychaitrist at [facility]. The mutul descion between medical and psych service was to initiate her serquel with the same home dose. House staff were warrened to avoid any first generation anti-psychotics due to her border line Qtc. The remainder of her hospitalization was unremarkable. Patient was assessed by physical therapy, who recommended STR. Patient is medically stable to be discharged to ab facility. Allergies: Coded Allergies: NO KNOWN ALLERGIES (05/24/16) Disposition Summary Disposition Principal Diagnosis: Left femure neck Fx Additional Diagnosis: Psychosis bipolar mood Discharge Disposition: SNF Discharge Instructions General Discharge Information Code Status: Do Not Resucitate/Intubat Patient's Diet: regular Patient's Activity: as tolerated Follow-Up Instructions/Appts: Follow up with your PCP w/ in one week follow up with Alexia Wise MD at ([phone]; ext:[phone]) Follow up with Dr. Lane Medications at Discharge Discharge Medications: Stop taking the following medications: Quetiapine Fumarate (Seroquel) 100 MG TAB ORAL Every night Diphenhydramine HCl (Benadryl) (Unknown Strength) CAP Continue taking these medications: Levothyroxine Sodium (Levothyroxine Sodium) 0.1 MG TAB 1 Tablet ORAL DAILY Qty = 90 Comments: TAKE 1 TABLET DAILY NEEDS BLOODWORK - SIG Obtained From First Aspirin (Children's Aspirin) (Unknown Strength) TAB.CHEW Unknown Dose Benztropine Mesylate (Benztropine) 1 MG TAB 1 Tablet ORAL BEDTIME Start taking the following new medications: Apixaban (Eliquis) 2.5 MG TABLET 2.5 Milligram ORAL TWICE DAILY Qty = 60 No Refills Instructions: take eliqus for 3months for dvt prophylaxis Comments: Last Taken: 03/13/17 Time: 1000 Polyethylene Glycol 3350 (Miralax) 17 GRAM/DOSE POWDER 17 Gram ORAL DAILY as needed for CONSTIPATION Qty = 10 No Refills Comments: NOT GIVEN IN HOSPITAL Quetiapine Fumarate (Quetiapine Fumarate) 100 MG TABLET 600 Milligram ORAL AT BEDTIME Qty = 30 No Refills Comments: Last Taken: 03/12/17 Time: 2200 Sennosides/Docusate Sodium (Senna Plus Tablet) 8.6 MG-50 MG TABLET 2 Tablet ORAL DAILY as needed for CONSTIPATION Qty = 15 No Refills Comments: Last Taken: 03/12/17 Time: 2200 Oxycodone HCl (Oxycodone HCl) 10 MG TABLET 10 Milligram ORAL EVERY 4-6 HOURS NEEDED as needed for PAIN Qty = 12 No Refills Comments: Last Taken: 03/12/17 Time: 2000 Acetaminophen (Pain Reliever) 650 MG TABLET.ER 1 Tablet ORAL EVERY 4-6 HOURS NEEDED as needed for pain Qty = 60 No Refills Comments: Last Taken: 03/13/17 Time: 0600 TOOK 1,000MG IV TYLENOL AT THIS TIME Copies To: OPAL HOGUE,MICHEAL Wolfe Attending MD Review Statement Documenting Attending: RENETTA MOSQUEDA MD Other Findings: PATIENT: UZMA MONTEJO PRESENT AGE: 51 PATIENT ACCOUNT NO: [id number] : 64 LOCATION: [facility] ORDERING PHYSICIAN: JAIDA PEREZ PA-C SERVICE DATE: 03/10/17 EXAM TYPE: RAD - XRY-FEMUR, LEFT 2 VIEWS; XRY-HIP 2-3 VIEWS, LEFT EXAMINATION: XR FEMUR and hip, LEFT CLINICAL INFORMATION: Pain post fall COMPARISON: None TECHNIQUE: AP view of the pelvis. AP and shoot through lateral view of the left hip. AP and lateral view of the left femur. FINDINGS: There is an impacted left femoral neck fracture. No other fracture is seen. The left hip joint and knee joint are unremarkable. Soft tissues are unremarkable. Bones of the pelvis are unremarkable. There is stool seen throughout the colon and dilatation of the bowel suggestive of constipation. IMPRESSION: Impacted left femoral neck fracture. DICTATED BY: ORIN MARSHALL MD DATE/TIME DICTATED:03/10/171057 MECHANICAL ENERGY ENGINEER:JENNIFER DATE/TIME TRANSCRIBED:03/10/171057 CONFIDENTIAL, DO NOT COPY WITHOUT APPROPRIATE AUTHORIZATION. <Electronically signed in Other Vendor System> SIGNED BY: ORIN MARSHALL MD [id number] PATIENT: UZMA MONTEJO PRESENT AGE: 51 PATIENT ACCOUNT NO: [id number] : 64 LOCATION: [facility] ORDERING PHYSICIAN: JAIDA PEREZ PA-C SERVICE DATE: 03/10/17 EXAM TYPE: CAT - CT CERV SPINE WO IV CONTRAST; CT HEAD WO IV CONTRAST EXAMINATION: CT HEAD WITHOUT CONTRAST CT CERVICAL SPINE WITHOUT CONTRAST CLINICAL INFORMATION: A 51-year-old female with history of fall. Found to have left femoral neck fracture. COMPARISON: CT of the head done on 03/21/2011. TECHNIQUE: Noncontrast CT scan of the head and cervical spine, using standard protocol. Multiplanar reconstructed images are obtained. Multiplanar reconstructed images are also obtained. DLP: 916.96 mGy-cm. FINDINGS: CT OF THE HEAD: The brain parenchyma, ventricles, cisterns and sulci appear unremarkable. Specifically, no evidence of intra-axial mass, mass effect, extra-axial fluid collection, midline shift, acute intraparenchymal hemorrhage and/or acute infarction present. Both orbital globes, extraocular muscles, optic nerves appear bilaterally symmetric and are unremarkable. The bilateral mastoid air cells appear unremarkable. Soft tissue thickening consistent with focal sinusitis versus mucous retention cyst and/or polyp is noted within the included visualized posterior inferior part of the left maxillary sinus. CT OF THE CERVICAL SPINE: The height, alignment of the cervical vertebrae is well maintained. The posterior appendages are intact. The prespinal soft tissues are unremarkable. Incidental note is made of significant facet joint arthritic changes on the right between C2-C3, C3-C4, C4-C5 and C5-C6 with partial fusion of C2-C3. Moderate mid cervical dextroscoliosis is noted. [id number] spondylosis is noted at C5-C6 and C6-C7. Nonspecific mild straightening of the cervical spine is also noted. Both lung apices are clear. IMPRESSION: 1. No acute intracranial pathology. 2. No CT evidence of any acute fracture no subluxation or dislocation or prespinal soft tissue hematoma present at the cervical spine. 3. Incidental note is made of focal sinusitis versus mucous retention cyst and/or polyp within the left maxillary sinus, and degenerative spondylosis, nonspecific straightening of the cervical spine and significant facet degenerative arthritic changes on the right with mid cervical moderate dextroscoliosis. DICTATED BY: JAYLAN GARCÍA MD DATE/TIME DICTATED:03/10/171239 MECHANICAL ENERGY ENGINEER:JENNIFER DATE/TIME TRANSCRIBED:03/10/171239 CONFIDENTIAL, DO NOT COPY WITHOUT APPROPRIATE AUTHORIZATION. <Electronically signed in Other Vendor System> SIGNED BY: JAYLAN GARCÍA MD 03/10/17 0237 The patient was seen and discussed with house staff. OK to discharge to short term rehab today. Please note that we did a mini mental status exam and score was 29/30 indicating no dementia. This diagnosis has been propagated in chart and given to her by her OP psych staff. Her stated that she had dementia and most likely he was the source of this information. She does have psychosis which is controlled with med. Also discussed meaning of code status with patient and she agrees to being full code. Will need to address advance directives as OP once out of STR.
[2017-03-13 08:00] VITALS: BP 120/76
[2017-03-13 08:44] LABS: ABSOLUTE BASOPHIL COUNT 0 /CUMM (0.0-0.2); ABSOLUTE EOSINOPHIL COUNT 0 /CUMM (0.0-0.7); ABSOLUTE LYMPH COUNT 1.2 /CUMM (1.2-3.4); ABSOLUTE MONOCYTE COUNT 0.5 /CUMM (0.10-0.60); BASOPHIL % 0.3 % (0.0-2.0); EOSINOPHIL % 0.3 % (0-5); GRANULOCYTE % 70.3 % (42.2-75.2); HEMATOCRIT 33.8 % (37-47); MEAN CORPUSCULAR HGB 32.3 PG (27.0-31.0); MEAN CORPUSCULAR HGB CONC 33.3 G/DL (33.0-37.0); MEAN CORPUSCULAR VOLUME 97.2 FL (81.0-99.0); MEAN PLATELET VOLUME 7.3 FL (7.4-10.4); PLATELET COUNT 152 /CUMM (130-400); RBC DISTRIBUTION WIDTH 14.2 % (11.5-14.5); RED BLOOD CELL CT 3.47 /CUMM (4.20-5.40); WHITE BLOOD CELL COUNT 5.6 /CUMM (4.8-10.8)
[2017-03-13 10:00] VITALS: BP 120/76
[2017-03-13] MEDS ORDERED: OXYCODONE HCL10 M2 PO (10:44)
[2017-03-13] MEDS ORDERED: PAIN RELIEVER650 MG PO (10:48)
--- NOTE | 2017-03-13 11:50 | Event Note ---
Event Note Event Note: DR. MOSQUEDA DISCUSSED ABOUT CODE STATUS WITH THE PATIENT * PATIENT WANTS TO BE FULL CODE * SHE IS COMPETENT ENOUGH TO MAKE DECISIONS * WE MADE HER FULL CODE.
[2017-03-13 12:00] VITALS: BP 120/76
[2017-03-13 12:17] VITALS: BP 120/76
== END 2017-03-13 13:20 | DRG 301 ==
LOC: ERH 08:43 → ERHI 13:36 → 2NB 13:36 → ERHI 14:05 → ENRESERV 14:30 → 2NB 15:15 → ENTRNSPT 18:39 → EDTRNSPT 19:10 → EDTRNSPTSTS 19:19 → CMPTRNSPT 19:32 → 2NB 03-13 13:20
PROVIDERS: Hospitalist; Physician Assistant; Student in an Organized Health Care Education/Training Program; ADMIT Internal Medicine
PROC: 0SRB04A Replacement of Left Hip Joint with Ceramic on Polyethylene Synthetic Substitute, Uncemented, Open Approach (ICD-10-PCS; principal; 2017-03-10)
DX: S72.002A Fracture of unspecified part of neck of left femur, initial encounter for closed fracture (principal); W18.30XA Fall on same level, unspecified, initial encounter; Y93.E2 Activity, laundry; Y92.019 Unspecified place in single-family (private) house as the place of occurrence of the external cause; F03.90 Unspecified dementia, unspecified severity, without behavioral disturbance, psychotic disturbance, mood disturbance, and anxiety; F31.9 Bipolar disorder, unspecified; G47.419 Narcolepsy without cataplexy; F41.8 Other specified anxiety disorders; E03.9 Hypothyroidism, unspecified; F10.20 Alcohol dependence, uncomplicated; D62 Acute posthemorrhagic anemia; F17.210 Nicotine dependence, cigarettes, uncomplicated
CPT/HCPCS: 2NSBP; 36415; 73502-LT; 73552; 80307; 82436; 87086; 93005; 93010; 96374; 97112-GO; 97116-GO; 97161-GP; 97530-GO; C9399; G0480; J0131; J0690; J3490